=== PATIENT | male | born 1965 | race African-American/Black ===

== ENCOUNTER 2017-10-17 01:14 | Inpatient (IN) ==
[2017-10-17 05:50] LABS: BUN/Creatinine Ratio 38 (6-26); Blood Urea Nitrogen 55 mg/dL (6-20); Calcium 7.7 mg/dL (8.6-10.3); Carbon Dioxide 16 mEq/L (23-29); Chloride 100 mEq/L (98-107); Glucose 471 mg/dL (70-105); Osmolality,Calculated 302 (280-300); Potassium 5.1 mEq/L (3.5-5.1); Sodium 128 mEq/L (136-145); eGFR For African Americans > 60 (> 60); eGFR For Non-African Americans 51 (> 60)
[2017-10-17] MEDS ORDERED: Ondansetron 4 MG/2 ML VIAL IVP PRN (06:47)
[2017-10-17] MEDS ORDERED: *HR* Morphine 2 MG/ML SYRINGE IVP PRN (06:47)
[2017-10-17] MEDS ORDERED: Naloxone 0.4 MG/ML INJ IVP PRN (06:47)
[2017-10-17] MEDS ORDERED: *HR* OxyCODONE Immed Rel 5 MG TABLET PO PRN (06:47)
[2017-10-17] MEDS ORDERED: Acetaminophen 325 MG TABLET PO PRN (06:47)
[2017-10-17] MEDS ORDERED: *HR* Dextrose 50 % in Water (Syg) 50 ML SYRINGE IVP PRN ×2 (06:50→10:10)
[2017-10-17] MEDS ORDERED: Insulin Human Regular 100 UNIT in 0.9 % Sodium Chloride 100 ML IVC SCH ×2 (07:00→07:30)
--- NOTE | 2017-10-17 07:27 | Internal Med History&Physical ---
Date of Encounter: 10/17/17 Time of Encounter: 05:45 Assessment and Plan (1) DKA (diabetic ketoacidoses) Current visit: Yes Status: Acute Presented with nausea, vomiting and abdominal pain. Labs are significant for hyperglycemia and metabolic acidosis. DKA likely exacerbated by underlying infection and flu. Started on IV hydration and insulin drip per protocol. Continue every hourly Accu-Cheks, every 4 hourly BMP. Monitor and replete electrolytes as needed. Keep nothing by mouth for now. Check hemoglobin A1c. Monitor hemodynamic status and urine output closely. Qualifiers: Diabetes mellitus type: type 1 Diabetes mellitus complication detail: without coma Qualified Code(s): E10.10 - Type 1 diabetes mellitus with ketoacidosis without coma (2) DRAKE (acute kidney injury) Current visit: Yes Status: Acute Due to hyperglycemia and DKA. Continue IV hydration, monitor serum creatinine and urine output closely. (3) Tobacco abuse Current visit: Yes Status: Chronic Patient not motivated to quit smoking at this time. Declines nicotine transdermal patch. (4) Influenza A Current visit: Yes Status: Acute Reports flulike symptoms, rapid influenza antigen tested positive for influenza A. Start Tamiflu along with supportive care. IV hydration. Respiratory precautions. (5) Pneumonia Current visit: Yes Status: Acute Presented with sepsis criteria, more related to DKA. Chest x-ray reviewed independently, shows right basal infiltrate. Continue IV Rocephin and Zithromax. Follow-up blood cultures. Qualifiers: Pneumonia type: due to unspecified organism Laterality: right Lung location: lower lobe of lung Qualified Code(s): J18.1 - Lobar pneumonia, unspecified organism (6) Essential hypertension Current visit: Yes Status: Chronic Internal Medicine - H&P: HPI Chief complaint: Nausea, vomiting, abdominal pain Admitted From: Emergency Dept Plans for Post Hospital Care: Home History of present illness: Mr. Rodriguez is a 52 year old male with history of hypertension, diabetes and tobacco abuse, presents to the emergency room with complaints of three-day history of nausea, vomiting and abdominal pain. Patient reports feeling sick with subjective fevers, chills, myalgia associated with dry cough. He started to have significant nausea, vomiting and upper abdominal pain for The last 2 days. Vomiting was bilious and nonbloody, he was unable to keep anything down. No diarrhea, chest pain, dyspnea. He is unable to provide a detailed history , no family member at bedside. Past Med Surg Social Fam HX - Past Medical History Medical history: diabetes, hypertension Psychiatric history: no psych history - Past Surgical History Surgical History: no surgical history - Social History Smoking Status: Current every day smoker Packs per day: 3-4 packs per day Smokeless Tobacco Status: No Alcohol use: heavy Drug use: none Occupational status: unemployed Current living situation: Home, With Family Activity Level: Independent ambulation Recent Out of Country Travel Within the Last 8 Weeks: No Exposure or Possible Exposure to Illness During Travel: No - Family History Mother History Unknown: Yes Living Status: Age at : 55 Cause of : dm Hx Family Endocrine Disorder: Yes Internal Medicine - H&P: Meds Albuterol Sulfate [Albuterol Inhaler] 1 - 2 puff IH Q6H 08/29/16 [History] Aspirin [Lo-Dose Aspirin EC] 81 mg PO DAILY 08/29/16 [History] Beclomethasone Diprop 40mcg [QVAR 40 mcg] 1 - 2 puff IH BID 08/29/16 [History] Gabapentin 800 mg PO TID 08/29/16 [History] Glimepiride [Amaryl] 4 mg PO DAILY 08/29/16 [History] Insulin ASPART [Novolog Flexpen] 0 unit SQ AD 08/29/16 [History] Insulin Glargine,Hum.rec.anlog [Lantus Solostar] 0 unit SQ AD 08/29/16 [History] Lisinopril [Zestril] 10 mg PO DAILY 08/29/16 [History] Simvastatin [Zocor] 20 mg PO DAILY 08/29/16 [History] metFORMIN [Glucophage] 1,000 mg PO BID 08/29/16 [History] Loratadine [Claritin] 10 mg PO DAILY 14 Days tablet 09/20/16 [Rx] 3 Allergy/AdvReac Type Severity Reaction Status Date / Time Penicillins [PCN] Allergy Hives Verified 10/16/17 23:12 All Systems PM: A 10-system review of systems was performed and is negative for pertinent findings except as documented above in the HPI. - Constitutional Constitutional: anorexia, chills, fever(s), malaise, weakness - EENT Eyes: no change in vision, no discharge, no pain, no photophobia Ears: no ear discharge, no ear pain, no tinnitus Nose, mouth and throat: no dysphagia, no nasal discharge, no neck pain, no sore throat - Cardiovascular Cardiovascular ROS IM: no chest pain, no diaphoresis, no dyspnea, no lightheadedness, no palpitations, no syncope - Respiratory Respiratory: cough - Gastrointestinal Gastrointestinal: abdominal pain, nausea, vomiting - Musculoskeletal Musculoskeletal ROS IM: no numbness, no tingling - Integumentary Integumentary IM: no rash, no unusual bruising - Neurological Neurological ROS: no confusion, no convulsions, no focal weakness, no numbness, no tingling, no tremor(s) - Hematologic/Lymphatic Hematologic/Lymphatic: no easy bruising - Constitutional Vitals: Temp Pulse Resp BP Pulse Ox 97.7 F 92 16 103/69 97 10/17/17 07:14 10/17/17 07:14 10/17/17 07:14 10/17/17 07:14 10/17/17 07:14 General appearance: Present: cachectic, disheveled, A&O X 3, answers questions appropriately - Respiratory Respiratory exam: Present: decreased breath sounds, rales (Right basal crackles) . Absent: accessory muscle use, rhonchi, wheezes - Cardiovascular Cardiovascular exam: Present: RRR, +S1, +S2, tachycardia. Absent: diastolic murmur, gallop, rubs, systolic murmur - GI/Abdominal GI/Abdominal exam: Present: normal bowel sounds, soft, no peritoneal signs. Absent: distended, tenderness - Extremities Exam Extremities exam: Present: full ROM, warm, radial pulses palpable and symmetrical. Absent: calf tenderness, cyanotic, pedal edema - Neurological Exam Neurological exam: Present: CN II-XII intact, oriented X3, no focal deficits. Absent: pronater drift, facial droop, speech deficit - Skin Skin exam: Present: dry, intact Internal Med - H&P Results - Labs CBC & Chem 7: 10/17/17 05:21 Labs: BMP 10/17/17 05:21 Sodium 128 L Potassium 5.1 Chloride 100 Carbon Dioxide 16 L BUN 55 H Creatinine 1.45 H Glucose 471 H Calcium 7.7 L
[2017-10-17] MEDS ORDERED: D5% in 0.45% NACL w KCl 20 MEQ/1,000 ML MLS IVC PRN (07:29)
[2017-10-17] MEDS ORDERED: Insulin Regular, Human 100 UNIT/ML IV PRN (07:29)
[2017-10-17] MEDS: Insulin Human Regular 100 UNIT in 0.9 % Sodium Chloride 100 ML IVC SCH ×2 (07:35→09:40)
[2017-10-17] MEDS: *HR* Heparin 5,000 UNIT/ML VIAL SQ SCH ×2 (07:37→16:54)
[2017-10-17] MEDS: Aspirin Enteric Coated 81 MG Tablet PO SCH (07:37)
[2017-10-17] MEDS: 0.9 % Sodium Chloride 1,000 ML IVC SCH ×2 (07:40→16:01)
[2017-10-17 10:01] LABS: BUN/Creatinine Ratio 41 (6-26); Blood Urea Nitrogen 55 mg/dL (6-20); Calcium 7.8 mg/dL (8.6-10.3); Carbon Dioxide 22 mEq/L (23-29); Chloride 105 mEq/L (98-107); Glucose 271 mg/dL (70-105); Magnesium 2.2 mg/dL (1.6-2.6); Osmolality,Calculated 301 (280-300); Phosphorous 1.3 mg/dL (2.7-4.5); Potassium 4.1 mEq/L (3.5-5.1); Sodium 133 mEq/L (136-145); eGFR For African Americans > 60 (> 60); eGFR For Non-African Americans 56 (> 60)
[2017-10-17] MEDS ORDERED: Dextrose Gel 15 GM/37.5 ML TUBE PO PRN ×2 (10:10)
[2017-10-17] MEDS ORDERED: D5% in Water 1,000 ML IVC PRN (10:10)
[2017-10-17] MEDS ORDERED: Insulin DETEMIR 100 UNIT/ML X5UNITS SQ STA (10:10)
[2017-10-17 10:44] LABS: Hemoglobin A1C 12.4 %
[2017-10-17] MEDS ORDERED: D5% in 0.45% NACL w KCl 20 MEQ/1,000 ML MLS IVC ONE (10:48)
[2017-10-17] MEDS ORDERED: D5% in 0.45% NACL w KCl 20 MEQ/1,000 ML MLS IVC SCH (11:00)
[2017-10-17] MEDS ORDERED: Insulin LISPRO 300 UNITS/3 ML VIAL SQ SCH ×2 (12:00→21:00)
--- NOTE | 2017-10-17 12:03 | Internal Med Progress Note ---
<Sonia William - Last Filed: 10/17/17 12:01> Date of Encounter: 10/17/17 Time of Encounter: 12:01 - Assessment and plan (1) DKA (diabetic ketoacidoses) Current Visit: Yes Status: Acute Assessment and plan: An iron gap has normalized Start diabetic diet We will discontinue IV fluids later today Continue to check electrolytes and replete as needed Accu-Cheks and sliding scale Start 10 units of Levemir daily Qualifiers: Diabetes mellitus type: type 1 Diabetes mellitus complication detail: without coma Qualified Code(s): E10.10 - Type 1 diabetes mellitus with ketoacidosis without coma (2) Pneumonia Current Visit: Yes Status: Acute Assessment and plan: Chest x-ray shows mild right infrahilar opacity Rocephin and azithromycin Blood cultures pending Qualifiers: Pneumonia type: due to unspecified organism Laterality: right Lung location: lower lobe of lung Qualified Code(s): J18.1 - Lobar pneumonia, unspecified organism (3) Influenza A Current Visit: Yes Status: Acute Assessment and plan: Tamiflu (4) DRAKE (acute kidney injury) Current Visit: Yes Status: Acute Assessment and plan: Due to DKA On IV fluids; diabetic diet has been started plan to discontinue fluids this evening Continue to monitor (5) Essential hypertension Current Visit: Yes Status: Chronic Assessment and plan: Chronic, stable Continue medications (6) Diabetes Current Visit: No Status: Acute Assessment and plan: A1c 12.4 Diabetic diet Levemir 10 units daily, adjust as needed Accu-Cheks Low-dose sliding scale Patient states that his meter at home was not working. Home medications unknown. Patient does not know how to read or write. Qualifiers: Diabetes mellitus type: type 1 Diabetes mellitus complication status: with ketoacidosis Diabetes mellitus complication detail: without coma Qualified Code(s): E10.10 - Type 1 diabetes mellitus with ketoacidosis without coma - Subjective Interval history: Patient seen and examined. Relates a several day history of being sick prior to coming to the hospital. - Constitutional Vitals: Temp Pulse Resp BP Pulse Ox 98.1 F 89 16 106/70 97 10/17/17 11:38 10/17/17 11:38 10/17/17 11:38 10/17/17 11:38 10/17/17 11:38 General appearance: Present: cachectic, disheveled, A&O X 3, answers questions appropriately - Head Head exam: Present: atraumatic, normocephalic - Eye Eye exam: Present: PERRL, conjuntiva pink, sclera anicteric Pupils: Present: PERRL - Neck Neck exam general surgery: Present: supple, trachea midline - Respiratory Respiratory exam: Present: CTAB. Absent: accessory muscle use, rales, rhonchi, wheezes - Cardiovascular Cardiovascular exam: Present: RRR, +S1, +S2. Absent: diastolic murmur, gallop, rubs, systolic murmur - GI/Abdominal GI/Abdominal exam: Present: normal bowel sounds, soft, no peritoneal signs. Absent: distended, tenderness - Extremities Exam Extremities exam: Present: warm. Absent: pedal edema, tenderness Additional comments: Posterior tibial pulses palpable and symmetric - Neurological Exam Neurological exam: Present: CN II-XII intact, oriented X3, no focal deficits. Absent: pronater drift, facial droop, speech deficit - Skin Skin exam: Present: dry, intact Internal Medicine: Result - Labs CBC & Chem 7: 10/17/17 09:26 Labs: [facility] 10/17/17 10/17/17 05:21 09:26 Sodium 128 L 133 L Potassium 5.1 4.1 Chloride 100 105 Carbon Dioxide 16 L 22 L BUN 55 H 55 H Creatinine 1.45 H 1.34 H Glucose 471 H 271 H Calcium 7.7 L 7.8 L Consult Discharge Plan - Plan Referrals: Aretha Wren MD [Primary Care Provider] - <Wagner Weeks - Last Filed: 10/17/17 18:54> Date of Encounter: 10/17/17 - Constitutional Vitals: Temp Pulse Resp BP Pulse Ox 98.0 F 84 15 111/75 99 10/17/17 16:01 10/17/17 16:02 10/17/17 16:01 10/17/17 16:01 10/17/17 16:01 Internal Medicine: Result - Labs CBC & Chem 7: 10/17/17 09:26 Labs: [facility] 10/17/17 10/17/17 05:21 09:26 Sodium 128 L 133 L Potassium 5.1 4.1 Chloride 100 105 Carbon Dioxide 16 L 22 L BUN 55 H 55 H Creatinine 1.45 H 1.34 H Glucose 471 H 271 H Calcium 7.7 L 7.8 L Urine 10/17/17 Range/Units 13:50 Urine Color Yellow (Yellow) Urine Clarity Clear (Clear) Urine pH 6.0 (5.0-8.0) pH Units Ur Specific [place] 1.025 (1.010-1.025) Urine Protein 30 H (Neg-Trace) mg/dL Urine Glucose (UA) >=1000 H (Normal) mg/dL - Attending Attestation I examined this patient and my medical decision-making was reviewed with the Resident Physician on 10/17/17. I agree with the documented findings, disposition and treatment plan as described except to the extent set forth below. Mr Rodriguez was admitted earlier today with acute DKA and influenza. He is now off insulin drip and eating. No fever at this time. Exam Alert. Comfortable Continue current plan as above.
[2017-10-17] MEDS: Insulin LISPRO 300 UNITS/3 ML VIAL SQ SCH ×2 (12:16→16:52)
[2017-10-17] MEDS: Oseltamivir Phosphate 30 MG CAPSULE PO SCH ×2 (12:37→20:58)
[2017-10-17 14:11] LABS: Bilirubin,Urine Negative (Negative); Blood,Urine Negative (Negative); Clarity,Urine Clear (Clear); Color,Urine Yellow (Yellow); Glucose,Urine (UA) >=1000 mg/dL (Normal); Ketones,Urine 15 mg/dL (Negative); Leukocyte Esterase,Urine Negative (Negative); Nitrite,Urine Negative (Negative); Protein,Urine 30 mg/dL (Neg-Trace); Specific Gravity,Urine 1.025 (1.010-1.025); Urobilinogen,Urine Normal (Normal)
[2017-10-17 14:25] LABS: Bacteria,Urine Few per hpf (None-Few)
[2017-10-17] MEDS ORDERED: Insulin DETEMIR 100 UNIT/ML X5UNITS SQ SCH (21:00)
[2017-10-18] MEDS: *HR* Heparin 5,000 UNIT/ML VIAL SQ SCH ×2 (00:38→07:34)
[2017-10-18] MEDS ORDERED: Azithromycin 500 MG in D5% in Water 250 ML IVPB SCH (01:30)
[2017-10-18] MEDS ORDERED: cefTRIAXone 1,000 MG in Water for inj. (sterile) 20 ML 10 ML IVPB SCH (04:30)
[2017-10-18] MEDS: Insulin LISPRO 300 UNITS/3 ML VIAL SQ SCH (07:34)
[2017-10-18] MEDS: Aspirin Enteric Coated 81 MG Tablet PO SCH (07:34)
[2017-10-18] MEDS: Oseltamivir Phosphate 30 MG CAPSULE PO SCH (07:34)
[2017-10-18 07:36] VITALS: BP 124/78
[2017-10-18 09:49] LABS: Basophils % 0.1 %; Eosinophils % 0.2 %; Hematocrit 34.8 % (37.5-50.1); Hemoglobin 11.9 g/dL (12.9-16.9); Immature Granulocytes % 0.4 % (0-4); Lymphocytes # 2.5 K/mcL (0.6-4.6); Lymphocytes % 15.7 %; Mean Corpuscular HGB Conc 34.2 g/dL (31.6-35.5); Mean Corpuscular Hemoglobin 28.4 pg (28.0-33.3); Mean Corpuscular Volume 83.1 fL (83.0-100.0); Mean Platelet Volume 11.5 fL (9.4-12.4); Monocytes # 1.3 K/mcL (0.0-1.3); Monocytes % 8.3 %; Neutrophils # 11.8 K/mcL (1.6-8.9); Platelet Count 220 K/mcL (140-400); Red Blood Count 4.19 M/mcL (4.19-5.50); Red Cell Distribution Width 15.3 % (11.5-14.5); Segmented Neutrophils % 75.3 %
[2017-10-18 09:52] LABS: BUN/Creatinine Ratio 29 (6-26); Blood Urea Nitrogen 21 mg/dL (6-20); Calcium 7.8 mg/dL (8.6-10.3); Carbon Dioxide 24 mEq/L (23-29); Chloride 108 mEq/L (98-107); Glucose 217 mg/dL (70-105); Magnesium 2.2 mg/dL (1.6-2.6); Osmolality,Calculated 292 (280-300); Potassium 4.1 mEq/L (3.5-5.1); Sodium 136 mEq/L (136-145); eGFR For African Americans > 60 (> 60); eGFR For Non-African Americans > 60 (> 60)
--- NOTE | 2017-10-18 09:56 | Discharge Summary ---
<MiladsorayajerseySonia sparrow - Last Filed: 10/18/17 09:51> Date of Encounter: 10/18/17 Time of Encounter: 09:52 - Discharge Diagnosis (1) DKA (diabetic ketoacidoses) Priority: Primary Status: Acute Qualifiers: Diabetes mellitus type: type 1 Diabetes mellitus complication detail: without coma Qualified Code(s): E10.10 - Type 1 diabetes mellitus with ketoacidosis without coma (2) Pneumonia Priority: Secondary Status: Inactive Qualifiers: Pneumonia type: due to unspecified organism Laterality: right Lung location: lower lobe of lung Qualified Code(s): J18.1 - Lobar pneumonia, unspecified organism (3) Influenza A Priority: Secondary Status: Inactive (4) DRAKE (acute kidney injury) Priority: Secondary Status: Acute (5) Essential hypertension Priority: Secondary Status: Chronic (6) Diabetes Priority: Secondary Status: Acute Qualifiers: Diabetes mellitus type: type 1 Diabetes mellitus complication status: with ketoacidosis Diabetes mellitus complication detail: without coma Qualified Code(s): E10.10 - Type 1 diabetes mellitus with ketoacidosis without coma - Discharge Medications Prescriptions: Azithromycin [Zithromax] 250 mg PO Q24H #4 tablet Oseltamivir Phosphate 75 mg PO BID #7 capsule Home Medications: Albuterol Sulfate [Albuterol Inhaler] 1 - 2 puff IH Q6H 08/29/16 [History] Aspirin [Lo-Dose Aspirin EC] 81 mg PO DAILY 08/29/16 [History] Beclomethasone Diprop 40mcg [QVAR 40 mcg] 1 - 2 puff IH BID 08/29/16 [History] Gabapentin 800 mg PO TID 08/29/16 [History] Insulin ASPART [Novolog Flexpen] 2 - 10 unit SQ TIDWM 08/29/16 [History] Insulin Glargine,Hum.rec.anlog [Lantus Solostar] 50 unit SQ QAM 08/29/16 [ History] Lisinopril [Zestril] 10 mg PO DAILY 08/29/16 [History] Simvastatin [Zocor] 20 mg PO DAILY 08/29/16 [History] Loratadine [Claritin] 10 mg PO DAILY 14 Days tablet 09/20/16 [Rx] Azithromycin [Zithromax] 250 mg PO Q24H #4 tablet 10/18/17 [Rx] Oseltamivir Phosphate 75 mg PO BID #7 capsule 10/18/17 [Rx] Allergies/Adverse Reactions: 3 Allergy/AdvReac Type Severity Reaction Status Date / Time Penicillins [PCN] Allergy Hives Verified 10/16/17 23:12 Date of admission: 10/17/17 05:43 Primary care physician: Aretha Wren Consults: 10/17/17 06:00 Consult to Nutrition [CONS] Routine Comment: Consulting Provider: NUTRITION Reason for Dietary Consult: MST Score Other Discharging clinician: Sonia William Anticipated date of discharge: 10/18/17 - Patient Status Disposition: Home, Self-Care Condition: Good Functional capacity at discharge: independent ambulation Overall status at discharge: patient is back to baseline - Discharge Instructions Instructions: Azithromycin (By mouth), Oseltamivir (By mouth) Follow Up With: Aretha Wren MD [Primary Care Provider] - (sent web request on 10-18-17 @ [phone]) Additional Instructions: Follow-up appointments: If there is not an appointment listed below, please call your physician and schedule a follow-up appointment. If you have congestive heart failure and your symptoms return, make an appointment with your physician. Medication List: Carry an up to date list of medications you are taking at all time. We have given you an updated medication list including any new medications that you have been prescribed. Please provide that list to your primary provider - Diet and Activity Diet: diabetic diet Interval History: Patient states that he is feeling better today. He states that his breathing is doing well. He is asking to be discharged. He states that he takes 32 units of insulin at night. His primary care physician asked him to take 10 units of insulin in the morning; however, this made his sugar too low. He states that he is supposed to take insulin with his meals; however, he is confused about how to use the sliding scale. The patient does not know how to read or write. Hospital course: Mr. Rodriguez is a 52 year old male admitted for diabetic ketoacidosis, pneumonia, and tested positive for influenza A. He had a three-day history of nausea, vomiting, and abdominal pain on admission. He also had subjective fevers, chills, myalgia, and a dry cough. He was initially treated with DKA protocol with insulin drip. His initial blood sugar was 705. His blood sugar normalized and he was started on long-acting insulin along with sliding scale. He was treated with Rocephin and azithromycin for pneumonia and Tamiflu for influenza A. he is being discharged home on his home dose of insulin, azithromycin for pneumonia, and Tamiflu for influenza A. - Time Spent with Patient Total time spent providing and/or coordinating discharge services: - Constitutional Vitals: Temp Pulse Resp BP Pulse Ox 98 F 76 18 124/78 96 10/18/17 07:32 10/18/17 07:41 10/18/17 07:32 10/18/17 07:32 10/18/17 07:32 General appearance: Present: cachectic, disheveled, A&O X 3, answers questions appropriately <Wagner Weeks - Last Filed: 10/18/17 13:56> Date of Encounter: 10/18/17 - Discharge Diagnosis (1) DKA (diabetic ketoacidoses) Status: Resolved Qualifiers: Diabetes mellitus type: type 1 Diabetes mellitus complication detail: without coma Qualified Code(s): E10.10 - Type 1 diabetes mellitus with ketoacidosis without coma (2) Metabolic encephalopathy Priority: Secondary Status: Resolved (3) Essential hypertension Status: Chronic (4) Tobacco abuse Priority: Secondary Status: Chronic (5) Diabetes Status: Chronic Qualifiers: Diabetes mellitus type: type 1 Diabetes mellitus complication status: with hyperglycemia Qualified Code(s): E10.65 - Type 1 diabetes mellitus with hyperglycemia (6) Alcohol abuse Priority: Secondary Status: Chronic (7) Illiterate Priority: Secondary Status: Chronic Date of admission: 10/17/17 05:43 Primary care physician: Aretha Wren Consults: 10/17/17 06:00 Consult to Nutrition [CONS] Routine Comment: Consulting Provider: NUTRITION Reason for Dietary Consult: MST Score Other Hospital course: Mr. Rodriguez is a 52 year old male - Time Spent with Patient Total time spent providing and/or coordinating discharge services: 38min - Constitutional Vitals: Temp Pulse Resp BP Pulse Ox 98 F 76 18 124/78 96 10/18/17 07:32 10/18/17 07:41 10/18/17 07:32 10/18/17 07:32 10/18/17 07:32 - Attending Attestation I examined this patient and my medical decision-making was reviewed with the Resident Physician on 10/18/17. I agree with the documented findings, disposition and treatment plan as described except to the extent set forth below. Mr Rodriguez has been admitted for acute DKA associated with pneumonia and acute influenza A. His sugar has corrected and he is tolerating home insulin dose. He needs new accucheck machine. He is now afebrile with stable vitals and ready for discharge home. Exam Alert. Comfortable Mucus membranes dry Heart reg No wheeze Abd soft Plan D/C home Follow up with PCP Scripts for accucheck machine and insulin Complete azithromycin and Tamiflu
[2017-10-18] MEDS ORDERED: Insulin DETEMIR 100 UNIT/ML X5UNITS SQ SCH (21:00)
== END 2017-10-18 11:57 | disposition home or self-care (01) | DRG 723 ==
LOC: 2NNU
PROVIDERS: ADMIT Internal Medicine; ATTEND Internal Medicine

== ENCOUNTER 2018-03-20 12:17 | Inpatient (IN) ==
--- NOTE | 2018-03-20 12:22 | Emergency Department Note ---
Disposition Clinical Impression: Altered mental state, Hypoglycemia Disposition: Admitted As Inpatient Condition: Fair General Adult HPI - General Chief complaint: ED General Medical Stated complaint: Hypoglycemia Time Seen by Provider: 03/20/18 12:19 - Related Data Home Medications Medication Instructions Recorded Confirmed Aspirin [Lo-Dose Aspirin EC] 81 mg PO DAILY 03/20/18 Gabapentin [Neurontin] 600 mg PO Q8H 03/20/18 03/20/18 Glimepiride [Amaryl] 4 mg PO DAILY 03/20/18 03/20/18 Insulin Glargine,Hum.rec.anlog 50 unit SQ HS 03/20/18 03/20/18 [Basaglar Kwikpen U-100] Metformin HCl [Glucophage] 1,000 mg PO BID 03/20/18 03/20/18 Montelukast [Singulair] 10 mg PO HS 03/20/18 03/20/18 Simvastatin [Zocor] 20 mg PO HS 03/20/18 03/20/18 Allergies Allergy/AdvReac Type Severity Reaction Status Date / Time Penicillins [PCN] Allergy Hives Verified 03/20/18 14:04 Course Vital Signs Temperature 97 F L 03/20/18 12:19 Pulse Rate 121 03/20/18 12:19 Respiratory Rate 20 03/20/18 12:19 Blood Pressure 127/101 03/20/18 12:19 O2 Sat by Pulse Oximetry 82 03/20/18 12:19 Temperature 99.5 F 03/20/18 18:52 Pulse Rate 101 03/20/18 18:52 Respiratory Rate 14 03/20/18 18:52 Blood Pressure 165/91 03/20/18 18:52 O2 Sat by Pulse Oximetry 99 03/20/18 18:52 Oxygen Delivery Oxygen Delivery Nasal Cannula Medical Decision Making - Lab Data Result diagrams: 03/20/18 13:06 03/20/18 12:19 Lab Results 03/20/18 03/20/18 03/20/18 Range/Units 12:19 12:19 12:23 WBC (4.3-11.1) K/mcL RBC (4.19-5.50) M/mcL Hgb (12.9-16.9) g/dL Hct (37.5-50.1) % MCV (83.0-100.0) fL MCH (28.0-33.3) pg MCHC (31.6-35.5) g/dL RDW (11.5-14.5) % Plt Count (140-400) K/mcL MPV (9.4-12.4) fL Immature Gran % (0-4) % Seg Neutrophils % % Lymphocytes % % Monocytes % % Eosinophils % % Basophils % % Neutrophils # (1.6-8.9) K/mcL Lymphocytes # (0.6-4.6) K/mcL Monocytes # (0.0-1.3) K/mcL Eosinophils # (0.0-0.6) K/mcL Basophils # (0.0-0.2) K/mcL PT 10.1 (9.4-12.1) Seconds INR 0.9 VBG pH (7.32-7.42) pH Units VBG pCO2 (41-51) mmHg VBG pO2 (25-50) mmHg VBG HCO3 (21-27) mEq/L Sodium 138 (136-145) mEq/L Potassium 4.0 (3.5-5.1) mEq/L Chloride 107 (98-107) mEq/L Carbon Dioxide 26 (23-29) mEq/L BUN 9 (6-20) mg/dL Creatinine 0.75 (0.70-1.30) mg/dL Est GFR ( Amer) > 60 (> 60) Est GFR (Non-Af Amer) > 60 (> 60) BUN/Creatinine Ratio 12 (6-26) Glucose 320 H (70-105) mg/dL Est Mean Plasma Glucose mg/dl Hemoglobin A1c ( - 5.6) % Calculated Osmolality 297 (280-300) Lactic Acid (0.5-2.2) mmol/L Calcium 8.7 (8.6-10.3) mg/dL Magnesium 1.8 (1.6-2.6) mg/dL Total Bilirubin 0.3 (0.3-1.0) mg/dL AST 20 (13-39) Units/L ALT 9 (7-52) Units/L Alkaline Phosphatase 61 (34-104) Units/L Troponin I < 0.03 (< 0.04) ng/mL Serum Total Protein 6.9 (6.4-8.9) g/dL Albumin 3.5 (3.5-5.7) g/dL Globulin 3.4 (2.4-3.5) g/dL Albumin/Globulin Ratio 1.0 L (1.1-2.2) Lipase 13 (11-82) Units/L Urine Color (Yellow) Urine Clarity (Clear) Urine pH (5.0-8.0) pH Units Ur Specific [place] (1.010-1.025) Urine Protein (Neg-Trace) mg/dL Urine Glucose (UA) (Normal) mg/dL Urine Ketones (Negative) mg/dL Urine Blood (Negative) Urine Nitrite (Negative) Urine Bilirubin (Negative) Urine Urobilinogen (Normal) mg/dL Ur Leukocyte Esterase (Negative) Urine Microscopic RBC (0-3) per hpf Urine Microscopic WBC (0-3) per hpf Ur Squamous Epith Cells (None-Few) per lpf Urine Bacteria (None-Few) per hpf Hyaline Casts (None-Few) per lpf Ur Culture Indicated? (NO) Urine Opiates Screen (Wbebyj=308) ng/mL Ur Barbiturates Screen (Nrfdel=436) ng/mL Ur Phencyclidine Scrn (Cutoff=25) ng/mL Ur Amphetamines Screen (Ukzsdl=4170) ng/mL U Benzodiazepines Scrn (Ymxlic=963) ng/mL Urine Cocaine Screen (Cutoff= 300) ng/mL U Marijuana (THC) Screen (Cutoff = 50) ng/mL Ethyl Alcohol < 10 (Less than 10) mg/dL 03/20/18 03/20/18 03/20/18 Range/Units 13:06 13:06 13:06 WBC 15.6 H (4.3-11.1) K/mcL RBC 4.80 (4.19-5.50) M/mcL Hgb 13.5 (12.9-16.9) g/dL Hct 41.1 (37.5-50.1) % MCV 85.6 (83.0-100.0) fL MCH 28.1 (28.0-33.3) pg MCHC 32.8 (31.6-35.5) g/dL RDW 14.1 (11.5-14.5) % Plt Count 386 (140-400) K/mcL MPV 10.4 (9.4-12.4) fL Immature Gran % 0.6 (0-4) % Seg Neutrophils % 81.3 % Lymphocytes % 7.9 % Monocytes % 8.8 % Eosinophils % 1.0 % Basophils % 0.4 % Neutrophils # 12.7 H (1.6-8.9) K/mcL Lymphocytes # 1.2 (0.6-4.6) K/mcL Monocytes # 1.4 H (0.0-1.3) K/mcL Eosinophils # 0.2 (0.0-0.6) K/mcL Basophils # 0.1 (0.0-0.2) K/mcL PT (9.4-12.1) Seconds INR VBG pH (7.32-7.42) pH Units VBG pCO2 (41-51) mmHg VBG pO2 (25-50) mmHg VBG HCO3 (21-27) mEq/L Sodium (136-145) mEq/L Potassium (3.5-5.1) mEq/L Chloride (98-107) mEq/L Carbon Dioxide (23-29) mEq/L BUN (6-20) mg/dL Creatinine (0.70-1.30) mg/dL Est GFR ( Amer) (> 60) Est GFR (Non-Af Amer) (> 60) BUN/Creatinine Ratio (6-26) Glucose (70-105) mg/dL Est Mean Plasma Glucose 252 mg/dl Hemoglobin A1c 10.4 H ( - 5.6) % Calculated Osmolality (280-300) Lactic Acid 0.8 (0.5-2.2) mmol/L Calcium (8.6-10.3) mg/dL Magnesium (1.6-2.6) mg/dL Total Bilirubin (0.3-1.0) mg/dL AST (13-39) Units/L ALT (7-52) Units/L Alkaline Phosphatase (34-104) Units/L Troponin I (< 0.04) ng/mL Serum Total Protein (6.4-8.9) g/dL Albumin (3.5-5.7) g/dL Globulin (2.4-3.5) g/dL Albumin/Globulin Ratio (1.1-2.2) Lipase (11-82) Units/L Urine Color (Yellow) Urine Clarity (Clear) Urine pH (5.0-8.0) pH Units Ur Specific [place] (1.010-1.025) Urine Protein (Neg-Trace) mg/dL Urine Glucose (UA) (Normal) mg/dL Urine Ketones (Negative) mg/dL Urine Blood (Negative) Urine Nitrite (Negative) Urine Bilirubin (Negative) Urine Urobilinogen (Normal) mg/dL Ur Leukocyte Esterase (Negative) Urine Microscopic RBC (0-3) per hpf Urine Microscopic WBC (0-3) per hpf Ur Squamous Epith Cells (None-Few) per lpf Urine Bacteria (None-Few) per hpf Hyaline Casts (None-Few) per lpf Ur Culture Indicated? (NO) Urine Opiates Screen (Gywork=768) ng/mL Ur Barbiturates Screen (Vmnjnk=611) ng/mL Ur Phencyclidine Scrn (Cutoff=25) ng/mL Ur Amphetamines Screen (Dhwthy=6521) ng/mL U Benzodiazepines Scrn (Pbthrn=054) ng/mL Urine Cocaine Screen (Cutoff= 300) ng/mL U Marijuana (THC) Screen (Cutoff = 50) ng/mL Ethyl Alcohol (Less than 10) mg/dL 03/20/18 03/20/18 03/20/18 Range/Units 13:19 13:30 13:30 WBC (4.3-11.1) K/mcL RBC (4.19-5.50) M/mcL Hgb (12.9-16.9) g/dL Hct (37.5-50.1) % MCV (83.0-100.0) fL MCH (28.0-33.3) pg MCHC (31.6-35.5) g/dL RDW (11.5-14.5) % Plt Count (140-400) K/mcL MPV (9.4-12.4) fL Immature Gran % (0-4) % Seg Neutrophils % % Lymphocytes % % Monocytes % % Eosinophils % % Basophils % % Neutrophils # (1.6-8.9) K/mcL Lymphocytes # (0.6-4.6) K/mcL Monocytes # (0.0-1.3) K/mcL Eosinophils # (0.0-0.6) K/mcL Basophils # (0.0-0.2) K/mcL PT (9.4-12.1) Seconds INR VBG pH 7.39 (7.32-7.42) pH Units VBG pCO2 47 (41-51) mmHg VBG pO2 116 H (25-50) mmHg VBG HCO3 28 H (21-27) mEq/L Sodium (136-145) mEq/L Potassium (3.5-5.1) mEq/L Chloride (98-107) mEq/L Carbon Dioxide (23-29) mEq/L BUN (6-20) mg/dL Creatinine (0.70-1.30) mg/dL Est GFR ( Amer) (> 60) Est GFR (Non-Af Amer) (> 60) BUN/Creatinine Ratio (6-26) Glucose (70-105) mg/dL Est Mean Plasma Glucose mg/dl Hemoglobin A1c ( - 5.6) % Calculated Osmolality (280-300) Lactic Acid (0.5-2.2) mmol/L Calcium (8.6-10.3) mg/dL Magnesium (1.6-2.6) mg/dL Total Bilirubin (0.3-1.0) mg/dL AST (13-39) Units/L ALT (7-52) Units/L Alkaline Phosphatase (34-104) Units/L Troponin I (< 0.04) ng/mL Serum Total Protein (6.4-8.9) g/dL Albumin (3.5-5.7) g/dL Globulin (2.4-3.5) g/dL Albumin/Globulin Ratio (1.1-2.2) Lipase (11-82) Units/L Urine Color Yellow (Yellow) Urine Clarity Clear (Clear) Urine pH 6.0 (5.0-8.0) pH Units Ur Specific [place] 1.016 (1.010-1.025) Urine Protein 100 H (Neg-Trace) mg/dL Urine Glucose (UA) 250 H (Normal) mg/dL Urine Ketones Negative (Negative) mg/dL Urine Blood Negative (Negative) Urine Nitrite Negative (Negative) Urine Bilirubin Negative (Negative) Urine Urobilinogen Normal (Normal) mg/dL Ur Leukocyte Esterase Negative (Negative) Urine Microscopic RBC 0-3 (0-3) per hpf Urine Microscopic WBC 0-3 (0-3) per hpf Ur Squamous Epith Cells Few (None-Few) per lpf Urine Bacteria Moderate H (None-Few) per hpf Hyaline Casts None Seen (None-Few) per lpf Ur Culture Indicated? NO (NO) Urine Opiates Screen Negative (Vhkbqq=628) ng/mL Ur Barbiturates Screen Negative (Yvosnl=278) ng/mL Ur Phencyclidine Scrn Negative (Cutoff=25) ng/mL Ur Amphetamines Screen Negative (Pfypvd=1787) ng/mL U Benzodiazepines Scrn Negative (Hjpwxf=564) ng/mL Urine Cocaine Screen Negative (Cutoff= 300) ng/mL U Marijuana (THC) Screen Negative (Cutoff = 50) ng/mL Ethyl Alcohol (Less than 10) mg/dL Critical Care Time Critical Care Time: Yes Total Critical Care Time: 30 Attestation: The high probability of a clinically significant, sudden or life threatening deterioration of the [] system(s) required my full and direct attention, intervention and personal management. The aggregate critical care time was [] minutes. This time is in addition to time spent performing reported procedures but includes the following: [] Data Review and interpretation [] Patient assessment and monitoring of vital signs [] Documentation [] Medication orders and management Attestation Statement - Attestation Attestation: I examined this patient and my medical decision-making was reviewed with the Resident Physician. I agree with the documented findings, disposition and treatment plan as described except to the extent set forth below. [id number] time provided Patient arrives by EMS with altered mentation and possible hypoglycemia. The patient was found on the porch with bystanders present. Bystanders had given the patient sweet tea by mouth prior to arrival. Upon arrival to our medical treatment area the patient is alert but is not answering questions appropriately. He looks disheveled. He does not really follow commands with desired intent and purpose. His name and medical history is initially unknown. No family is present. Stroke alert not initially activated because we do not know the onset of patient's symptoms. He will be closely observed 12:42: Family now available at bedside 13:52: Patient is now alert, lucid. He follows commands. He is verbal. He appears to be approaching back to baseline. We will request admission to the medicine service due to the fact that the patient takes a sulfonylurea (amaryl) as well as insulin and metformin
[2018-03-20] MEDS ORDERED: *HR* Dextrose 50 % in Water (Syg) 50 ML SYRINGE IVP ONE (12:24)
[2018-03-20 13:00] LABS: INR 0.9; Prothrombin Time 10.1 Seconds (9.4-12.1)
[2018-03-20 13:10] LABS: Alanine Aminotransferase 9 Units/L (7-52); Albumin 3.5 g/dL (3.5-5.7); Alkaline Phosphatase 61 Units/L (34-104); Aspartate Amino Transferase 20 Units/L (13-39); BUN/Creatinine Ratio 12 (6-26); Bilirubin,Total 0.3 mg/dL (0.3-1.0); Blood Urea Nitrogen 9 mg/dL (6-20); Calcium 8.7 mg/dL (8.6-10.3); Carbon Dioxide 26 mEq/L (23-29); Chloride 107 mEq/L (98-107); Globulin 3.4 g/dL (2.4-3.5); Glucose 320 mg/dL (70-105); Lipase 13 Units/L (11-82); Magnesium 1.8 mg/dL (1.6-2.6); Osmolality,Calculated 297 (280-300); Sodium 138 mEq/L (136-145); Total Protein 6.9 g/dL (6.4-8.9); Troponin I < 0.03 ng/mL (< 0.04); eGFR For African Americans > 60 (> 60); eGFR For Non-African Americans > 60 (> 60)
[2018-03-20 13:12] LABS: Basophils # 0.1 K/mcL (0.0-0.2); Basophils % 0.4 %; Eosinophils # 0.2 K/mcL (0.0-0.6); Hematocrit 41.1 % (37.5-50.1); Hemoglobin 13.5 g/dL (12.9-16.9); Immature Granulocytes % 0.6 % (0-4); Lymphocytes # 1.2 K/mcL (0.6-4.6); Lymphocytes % 7.9 %; Mean Corpuscular HGB Conc 32.8 g/dL (31.6-35.5); Mean Corpuscular Hemoglobin 28.1 pg (28.0-33.3); Mean Corpuscular Volume 85.6 fL (83.0-100.0); Mean Platelet Volume 10.4 fL (9.4-12.4); Monocytes # 1.4 K/mcL (0.0-1.3); Monocytes % 8.8 %; Neutrophils # 12.7 K/mcL (1.6-8.9); Platelet Count 386 K/mcL (140-400); Red Cell Distribution Width 14.1 % (11.5-14.5); Segmented Neutrophils % 81.3 %
[2018-03-20 13:23] LABS: VBG HCO3 28 mEq/L (21-27); VBG PCO2 47 mmHg (41-51); VBG PH 7.39 pH Units (7.32-7.42); VBG PO2 116 mmHg (25-50)
[2018-03-20 13:41] LABS: Bilirubin,Urine Negative (Negative); Blood,Urine Negative (Negative); Clarity,Urine Clear (Clear); Color,Urine Yellow (Yellow); Glucose,Urine (UA) 250 mg/dL (Normal); Ketones,Urine Negative (Negative); Leukocyte Esterase,Urine Negative (Negative); Nitrite,Urine Negative (Negative); Protein,Urine 100 mg/dL (Neg-Trace); Specific Gravity,Urine 1.016 (1.010-1.025); Urobilinogen,Urine Normal (Normal)
[2018-03-20 13:43] LABS: Bacteria,Urine Moderate per hpf (None-Few); Hyaline Casts,Urine None Seen per lpf (None-Few); RBC,Urine 0-3 per hpf (0-3); Squamous Epithelial Cell,Urine Few per lpf (None-Few); WBC,Urine 0-3 per hpf (0-3)
[2018-03-20 14:09] LABS: Amphetamine Screen,Urine Negative ng/mL (Cutoff=1000); Barbiturate Screen,Urine Negative ng/mL (Cutoff=200); Benzodiazepines Screen,Urine Negative ng/mL (Cutoff=200); Cannabinoid Screen,Urine Negative ng/mL (Cutoff = 50); Cocaine Screen,Urine Negative ng/mL (Cutoff= 300); Opiate Screen,Urine Negative ng/mL (Cutoff=300); Phencyclidine Screen,Urine Negative ng/mL (Cutoff=25)
--- NOTE | 2018-03-20 14:11 | Emergency Department Note ---
Disposition Clinical Impression: Hypoglycemia Altered mental state Qualifiers: Altered mental status type: delirium Qualified Code(s): R41.0 - Disorientation , unspecified Disposition: Admitted As Inpatient Condition: Fair Time of Disposition: 14:52 General Adult HPI - General Chief complaint: ED General Medical Stated complaint: Hypoglycemia Time Seen by Provider: 03/20/18 12:19 Source: EMS Mode of arrival: EMS Limitations: altered mental status Nursing Notes Reviewed: Yes Vital Signs Reviewed: Yes - History of Present Illness HPI Narrative: Patient is a 52-year-old male who presents to [facility] ED with a chief complaint of altered mental status and hypoglycemia. Per EMS, they had a reported glucose of 39. When they went and checked it, his glucose was 89. Patient was still obtunded at that time. When they brought him here, his glucose had dropped down to 57 and again. Patient was given an amp of D50. Patient was unresponsive but awake. Unable to answer any questions. Awaiting family arrival. Onset (ago): hour(s) Pain Scale: 0 Improves with: nothing Worsens with: nothing Associated symptoms: Reports: denies other symptoms Treatments Prior to Arrival: none - Related Data Home Medications Medication Instructions Recorded Confirmed Aspirin [Lo-Dose Aspirin EC] 81 mg PO DAILY 03/20/18 Gabapentin [Neurontin] 600 mg PO Q8H 03/20/18 03/20/18 Glimepiride [Amaryl] 4 mg PO DAILY 03/20/18 03/20/18 Insulin Glargine,Hum.rec.anlog 50 unit SQ HS 03/20/18 03/20/18 [Basaglar Kwikpen U-100] Metformin HCl [Glucophage] 1,000 mg PO BID 03/20/18 03/20/18 Montelukast [Singulair] 10 mg PO HS 03/20/18 03/20/18 Simvastatin [Zocor] 20 mg PO HS 03/20/18 03/20/18 Allergies Allergy/AdvReac Type Severity Reaction Status Date / Time Penicillins [PCN] Allergy Hives Verified 03/20/18 14:04 Limitations: ROS unobtainable due to patients medical condition Past Medical History - Past Medical History Attestation: Yes The following information was validated with the patient. Source: old records reviewed Medical history: Reports: non-contributory - Social History Smoking Status: Unknown if ever smoked Alcohol use: Reports: unknown Drug use: Reports: unknown Physical Exam - General Limitations: altered mental status General appearance: alert, in no apparent distress - Head Head exam: atraumatic, normocephalic, normal inspection - Eye Eye exam: Present: normal appearance - ENT ENT exam: normal exam, normal oropharynx, mucous membranes moist - Neck Neck exam: Present: normal inspection, full ROM, trachea midline - Chest Chest inspection: Present: normal inspection, symmetric chest wall rise - Respiratory Respiratory exam: Present: normal lung sounds bilaterally - Cardiovascular Cardiovascular exam: Present: regular rate, normal rhythm, normal heart sounds - Abdominal Exam Abdominal exam: Present: soft, Non-Tender. Absent: tenderness, distention, guarding, rebound, rigidity - Extremities Exam Extremities exam: Present: normal inspection, full ROM. Absent: tenderness, pedal edema - Skin Skin exam: Present: warm, dry, intact, normal color Course Course Narrative: Patient seen and examined. Obtunded upon his arrival. Unable to answer any questions. Glucose is 57 zone amp of D50 was given. Altered mental status workup initiated along with CT of the head, chest x-ray, urine analysis. - Reevaluation(s) Reevaluation #1: Upon family's arrival, states he has had multiple hypoglycemic episodes. States he has not been conversational at all today. Unknown when he was last well. Patient currently on insulin, metformin, Amaryl. Suspect patient will need continued monitoring for his glucose. May need his medications adjusted. Family member states he gave him a shot of something last night but they are not sure exactly what it was. They will need counseling as to how to administer his medications. Time: 14:50 Vital Signs Temperature 97 F L 03/20/18 12:19 Pulse Rate 121 03/20/18 12:19 Respiratory Rate 20 03/20/18 12:19 Blood Pressure 127/101 03/20/18 12:19 O2 Sat by Pulse Oximetry 82 03/20/18 12:19 Temperature 99.5 F 03/20/18 18:52 Pulse Rate 101 03/20/18 18:52 Respiratory Rate 14 03/20/18 18:52 Blood Pressure 165/91 03/20/18 18:52 O2 Sat by Pulse Oximetry 99 03/20/18 18:52 Oxygen Delivery Oxygen Delivery Nasal Cannula Medical Decision Making - Medical Records Medical records reviewed: Yes I reviewed the patient's medical records. - Lab Data Lab results reviewed: Yes I reviewed the patient's lab results. Result diagrams: 03/20/18 13:06 03/20/18 12:19 Lab Results 03/20/18 03/20/18 03/20/18 Range/Units 12:19 12:19 12:23 WBC (4.3-11.1) K/mcL RBC (4.19-5.50) M/mcL Hgb (12.9-16.9) g/dL Hct (37.5-50.1) % MCV (83.0-100.0) fL MCH (28.0-33.3) pg MCHC (31.6-35.5) g/dL RDW (11.5-14.5) % Plt Count (140-400) K/mcL MPV (9.4-12.4) fL Immature Gran % (0-4) % Seg Neutrophils % % Lymphocytes % % Monocytes % % Eosinophils % % Basophils % % Neutrophils # (1.6-8.9) K/mcL Lymphocytes # (0.6-4.6) K/mcL Monocytes # (0.0-1.3) K/mcL Eosinophils # (0.0-0.6) K/mcL Basophils # (0.0-0.2) K/mcL PT 10.1 (9.4-12.1) Seconds INR 0.9 VBG pH (7.32-7.42) pH Units VBG pCO2 (41-51) mmHg VBG pO2 (25-50) mmHg VBG HCO3 (21-27) mEq/L Sodium 138 (136-145) mEq/L Potassium 4.0 (3.5-5.1) mEq/L Chloride 107 (98-107) mEq/L Carbon Dioxide 26 (23-29) mEq/L BUN 9 (6-20) mg/dL Creatinine 0.75 (0.70-1.30) mg/dL Est GFR ( Amer) > 60 (> 60) Est GFR (Non-Af Amer) > 60 (> 60) BUN/Creatinine Ratio 12 (6-26) Glucose 320 H (70-105) mg/dL Est Mean Plasma Glucose mg/dl Hemoglobin A1c ( - 5.6) % Calculated Osmolality 297 (280-300) Lactic Acid (0.5-2.2) mmol/L Calcium 8.7 (8.6-10.3) mg/dL Magnesium 1.8 (1.6-2.6) mg/dL Total Bilirubin 0.3 (0.3-1.0) mg/dL AST 20 (13-39) Units/L ALT 9 (7-52) Units/L Alkaline Phosphatase 61 (34-104) Units/L Troponin I < 0.03 (< 0.04) ng/mL Serum Total Protein 6.9 (6.4-8.9) g/dL Albumin 3.5 (3.5-5.7) g/dL Globulin 3.4 (2.4-3.5) g/dL Albumin/Globulin Ratio 1.0 L (1.1-2.2) Lipase 13 (11-82) Units/L Urine Color (Yellow) Urine Clarity (Clear) Urine pH (5.0-8.0) pH Units Ur Specific [place] (1.010-1.025) Urine Protein (Neg-Trace) mg/dL Urine Glucose (UA) (Normal) mg/dL Urine Ketones (Negative) mg/dL Urine Blood (Negative) Urine Nitrite (Negative) Urine Bilirubin (Negative) Urine Urobilinogen (Normal) mg/dL Ur Leukocyte Esterase (Negative) Urine Microscopic RBC (0-3) per hpf Urine Microscopic WBC (0-3) per hpf Ur Squamous Epith Cells (None-Few) per lpf Urine Bacteria (None-Few) per hpf Hyaline Casts (None-Few) per lpf Ur Culture Indicated? (NO) Urine Opiates Screen (Vycwro=819) ng/mL Ur Barbiturates Screen (Zlavmy=307) ng/mL Ur Phencyclidine Scrn (Cutoff=25) ng/mL Ur Amphetamines Screen (Zxgcqe=3967) ng/mL U Benzodiazepines Scrn (Taywfh=908) ng/mL Urine Cocaine Screen (Cutoff= 300) ng/mL U Marijuana (THC) Screen (Cutoff = 50) ng/mL Ethyl Alcohol < 10 (Less than 10) mg/dL 03/20/18 03/20/18 03/20/18 Range/Units 13:06 13:06 13:06 WBC 15.6 H (4.3-11.1) K/mcL RBC 4.80 (4.19-5.50) M/mcL Hgb 13.5 (12.9-16.9) g/dL Hct 41.1 (37.5-50.1) % MCV 85.6 (83.0-100.0) fL MCH 28.1 (28.0-33.3) pg MCHC 32.8 (31.6-35.5) g/dL RDW 14.1 (11.5-14.5) % Plt Count 386 (140-400) K/mcL MPV 10.4 (9.4-12.4) fL Immature Gran % 0.6 (0-4) % Seg Neutrophils % 81.3 % Lymphocytes % 7.9 % Monocytes % 8.8 % Eosinophils % 1.0 % Basophils % 0.4 % Neutrophils # 12.7 H (1.6-8.9) K/mcL Lymphocytes # 1.2 (0.6-4.6) K/mcL Monocytes # 1.4 H (0.0-1.3) K/mcL Eosinophils # 0.2 (0.0-0.6) K/mcL Basophils # 0.1 (0.0-0.2) K/mcL PT (9.4-12.1) Seconds INR VBG pH (7.32-7.42) pH Units VBG pCO2 (41-51) mmHg VBG pO2 (25-50) mmHg VBG HCO3 (21-27) mEq/L Sodium (136-145) mEq/L Potassium (3.5-5.1) mEq/L Chloride (98-107) mEq/L Carbon Dioxide (23-29) mEq/L BUN (6-20) mg/dL Creatinine (0.70-1.30) mg/dL Est GFR ( Amer) (> 60) Est GFR (Non-Af Amer) (> 60) BUN/Creatinine Ratio (6-26) Glucose (70-105) mg/dL Est Mean Plasma Glucose 252 mg/dl Hemoglobin A1c 10.4 H ( - 5.6) % Calculated Osmolality (280-300) Lactic Acid 0.8 (0.5-2.2) mmol/L Calcium (8.6-10.3) mg/dL Magnesium (1.6-2.6) mg/dL Total Bilirubin (0.3-1.0) mg/dL AST (13-39) Units/L ALT (7-52) Units/L Alkaline Phosphatase (34-104) Units/L Troponin I (< 0.04) ng/mL Serum Total Protein (6.4-8.9) g/dL Albumin (3.5-5.7) g/dL Globulin (2.4-3.5) g/dL Albumin/Globulin Ratio (1.1-2.2) Lipase (11-82) Units/L Urine Color (Yellow) Urine Clarity (Clear) Urine pH (5.0-8.0) pH Units Ur Specific [place] (1.010-1.025) Urine Protein (Neg-Trace) mg/dL Urine Glucose (UA) (Normal) mg/dL Urine Ketones (Negative) mg/dL Urine Blood (Negative) Urine Nitrite (Negative) Urine Bilirubin (Negative) Urine Urobilinogen (Normal) mg/dL Ur Leukocyte Esterase (Negative) Urine Microscopic RBC (0-3) per hpf Urine Microscopic WBC (0-3) per hpf Ur Squamous Epith Cells (None-Few) per lpf Urine Bacteria (None-Few) per hpf Hyaline Casts (None-Few) per lpf Ur Culture Indicated? (NO) Urine Opiates Screen (Ctsips=674) ng/mL Ur Barbiturates Screen (Cqadty=360) ng/mL Ur Phencyclidine Scrn (Cutoff=25) ng/mL Ur Amphetamines Screen (Vwsbmu=8189) ng/mL U Benzodiazepines Scrn (Hdyurg=582) ng/mL Urine Cocaine Screen (Cutoff= 300) ng/mL U Marijuana (THC) Screen (Cutoff = 50) ng/mL Ethyl Alcohol (Less than 10) mg/dL 03/20/18 03/20/18 03/20/18 Range/Units 13:19 13:30 13:30 WBC (4.3-11.1) K/mcL RBC (4.19-5.50) M/mcL Hgb (12.9-16.9) g/dL Hct (37.5-50.1) % MCV (83.0-100.0) fL MCH (28.0-33.3) pg MCHC (31.6-35.5) g/dL RDW (11.5-14.5) % Plt Count (140-400) K/mcL MPV (9.4-12.4) fL Immature Gran % (0-4) % Seg Neutrophils % % Lymphocytes % % Monocytes % % Eosinophils % % Basophils % % Neutrophils # (1.6-8.9) K/mcL Lymphocytes # (0.6-4.6) K/mcL Monocytes # (0.0-1.3) K/mcL Eosinophils # (0.0-0.6) K/mcL Basophils # (0.0-0.2) K/mcL PT (9.4-12.1) Seconds INR VBG pH 7.39 (7.32-7.42) pH Units VBG pCO2 47 (41-51) mmHg VBG pO2 116 H (25-50) mmHg VBG HCO3 28 H (21-27) mEq/L Sodium (136-145) mEq/L Potassium (3.5-5.1) mEq/L Chloride (98-107) mEq/L Carbon Dioxide (23-29) mEq/L BUN (6-20) mg/dL Creatinine (0.70-1.30) mg/dL Est GFR ( Amer) (> 60) Est GFR (Non-Af Amer) (> 60) BUN/Creatinine Ratio (6-26) Glucose (70-105) mg/dL Est Mean Plasma Glucose mg/dl Hemoglobin A1c ( - 5.6) % Calculated Osmolality (280-300) Lactic Acid (0.5-2.2) mmol/L Calcium (8.6-10.3) mg/dL Magnesium (1.6-2.6) mg/dL Total Bilirubin (0.3-1.0) mg/dL AST (13-39) Units/L ALT (7-52) Units/L Alkaline Phosphatase (34-104) Units/L Troponin I (< 0.04) ng/mL Serum Total Protein (6.4-8.9) g/dL Albumin (3.5-5.7) g/dL Globulin (2.4-3.5) g/dL Albumin/Globulin Ratio (1.1-2.2) Lipase (11-82) Units/L Urine Color Yellow (Yellow) Urine Clarity Clear (Clear) Urine pH 6.0 (5.0-8.0) pH Units Ur Specific [place] 1.016 (1.010-1.025) Urine Protein 100 H (Neg-Trace) mg/dL Urine Glucose (UA) 250 H (Normal) mg/dL Urine Ketones Negative (Negative) mg/dL Urine Blood Negative (Negative) Urine Nitrite Negative (Negative) Urine Bilirubin Negative (Negative) Urine Urobilinogen Normal (Normal) mg/dL Ur Leukocyte Esterase Negative (Negative) Urine Microscopic RBC 0-3 (0-3) per hpf Urine Microscopic WBC 0-3 (0-3) per hpf Ur Squamous Epith Cells Few (None-Few) per lpf Urine Bacteria Moderate H (None-Few) per hpf Hyaline Casts None Seen (None-Few) per lpf Ur Culture Indicated? NO (NO) Urine Opiates Screen Negative (Rndnkt=685) ng/mL Ur Barbiturates Screen Negative (Ceiuug=666) ng/mL Ur Phencyclidine Scrn Negative (Cutoff=25) ng/mL Ur Amphetamines Screen Negative (Oqccwf=7140) ng/mL U Benzodiazepines Scrn Negative (Xfyfdb=150) ng/mL Urine Cocaine Screen Negative (Cutoff= 300) ng/mL U Marijuana (THC) Screen Negative (Cutoff = 50) ng/mL Ethyl Alcohol (Less than 10) mg/dL - Radiology Data Radiology results reviewed: Yes I reviewed the patient's radiology results. Head CT 03/20/18 12:19 IMPRESSION: No acute intracranial abnormality. Mild to moderate bilateral ethmoid and maxillary sinus mucosal thickening. D/ / Evelyn Bright Cha, MD / Evelyn Bright Cha, MD Interpreting Provider: Evelyn Bright Cha, MD Chest X-Ray 03/20/18 12:20 IMPRESSION: Stable portable study. D/ / Evelyn Bright Cha, MD / Evelyn Bright Cha, MD Interpreting Provider: Evelyn Bright Cha, MD - EKG Data EKG #1 EKG attestation: Yes I reviewed and interpreted this EKG. EKG results narrative: EKG done at 1313 shows normal sinus rhythm with a rate of [address] elevation or depression noted. Normal axis.
[2018-03-20] MEDS ORDERED: Naloxone 0.4 MG/ML INJ IVP PRN (14:49)
[2018-03-20] MEDS ORDERED: *HR* Promethazine 25 MG/ML VIAL IVP PRN (14:49)
[2018-03-20] MEDS ORDERED: Acetaminophen 325 MG TABLET PO PRN (14:49)
[2018-03-20] MEDS ORDERED: *HR* HYDROcodone/Acet 5/325 mg TABLET PO PRN (14:49)
[2018-03-20] MEDS ORDERED: Ondansetron 4 MG/2 ML VIAL IVP PRN (14:49)
[2018-03-20 15:08] LABS: Estimated Average Glucose 252 mg/dl; Hemoglobin A1C 10.4 %
[2018-03-20] MEDS ORDERED: diazePAM 10 MG/2 ML SYRINGE IVP PRN (15:30)
[2018-03-20] MEDS ORDERED: *HR* LORazepam 2 MG/ML VIAL IVP PRN (15:30)
--- NOTE | 2018-03-20 15:47 | Internal Med History&Physical ---
Date of Encounter: 03/20/18 Time of Encounter: 15:00 Internal Medicine - H&P: HPI Chief complaint: Hypoglycemia Admitted From: Emergency Dept Plans for Post Hospital Care: Home History of present illness: Mr. Rodriguez is a 52 year old male DM2, Tobacco dependent, Alcohol dependent drinks 12-20 beers a day was brought into ER by family for severe hypoglycemia. As per pt he was drinking all day y/d and took his Levemir 40 U at [facility], later he became diaphoretic and dizzy early this morning. Also pt was confused and his accuckech was 39. He was given some orange juice , here in the ER his BS still 57. He was given D50 x 1 amp. Now he is alert, awake and Ox 3. However still looks little confused, weak and lethargic. Past Med Surg Social Fam HX - Past Medical History Medical history: diabetes, hypertension - Social History Smoking Status: Current every day smoker Packs per day: 2 Smokeless Tobacco Status: No Alcohol use: heavy Drug use: unknown - Family History Mother Living Status: Hx Family Endocrine Disorder: Yes (dm) Internal Medicine - H&P: Meds Aspirin [Lo-Dose Aspirin EC] 81 mg PO DAILY 03/20/18 [History] Gabapentin [Neurontin] 600 mg PO Q8H 03/20/18 [History] Glimepiride [Amaryl] 4 mg PO DAILY 03/20/18 [History] Insulin Glargine,Hum.rec.anlog [Basaglar Kwikpen U-100] 50 unit SQ HS 03/20/18 [ History] Metformin HCl [Glucophage] 1,000 mg PO BID 03/20/18 [History] Montelukast [Singulair] 10 mg PO HS 03/20/18 [History] Simvastatin [Zocor] 20 mg PO HS 03/20/18 [History] 3 Allergy/AdvReac Type Severity Reaction Status Date / Time Penicillins [PCN] Allergy Hives Verified 03/20/18 14:04 All Systems PM: A 10-system review of systems was performed and is negative for pertinent findings except as documented above in the HPI. Review of systems: All the systems are reviewed everything is benign except the systems and symptoms I mentioned in the history of present illness - Constitutional Vitals: Temp Pulse Resp BP Pulse Ox 97 F L 98 16 162/108 100 06/03/18 12:19 03/20/18 14:00 03/20/18 14:38 03/20/18 14:38 03/20/18 14:00 General appearance: Present: A&O X 3, no acute distress, answers questions appropriately - Head Head exam: Present: atraumatic, normal inspection - Neck Neck exam general surgery: Present: supple - Respiratory Respiratory exam: Present: decreased breath sounds. Absent: rales, respiratory distress, rhonchi, wheezes - Cardiovascular Cardiovascular exam: Present: RRR, +S1, +S2. Absent: tachycardia - GI/Abdominal GI/Abdominal exam: Present: normal bowel sounds, soft. Absent: distended, rigid , tenderness - Extremities Exam Extremities exam: Absent: calf tenderness, pedal edema, tenderness - Back Exam Back exam: Absent: CVA tenderness (L), CVA tenderness (R) - Neurological Exam Neurological exam: Present: alert, oriented X3 - Psychiatric Psychiatric exam: Present: anxious - Skin Skin exam: Absent: rash Internal Med - H&P Results - Labs CBC & Chem 7: 03/20/18 13:06 03/20/18 12:19 - Assessment and plan (1) Hypoglycemia Current Visit: Yes Status: Acute Assessment and plan: Place the pt into tele for observation check Q4hr Accuchecks His hypoglycemia might due to nutritional def, alcohol intake and Insulin + Sulfonylurea usage Held all DM meds cont close monitoring no need of D5IVF now tolerating PO intake well (2) Altered mental state Current Visit: Yes Status: Acute Assessment and plan: Due to metabolic encephalopathy with severe hypoglycemia + Alcohol usage too improving cont close monitoring Qualifiers: Altered mental status type: delirium Qualified Code(s): R41.0 - Disorientation, unspecified (3) Alcohol dependence Current Visit: Yes Status: Acute Assessment and plan: High risk for withdrawal symptoms Placed him on CIWA protocol Ativan PRN Thiamine + Folic acid + MVT Also started him on HORACIO Librium SW consulted Qualifiers: Substance use status: uncomplicated Qualified Code(s): F10.20 - Alcohol dependence, uncomplicated (4) DM2 (diabetes mellitus, type 2) Current Visit: Yes Status: Acute Assessment and plan: cont monitoring for now will check HbA1C If BS improves will put him on low ISS Qualifiers: 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
[2018-03-20] MEDS: Gabapentin 300 MG CAPSULE PO SCH ×3 (16:36→20:42)
[2018-03-20] MEDS: Thiamine (B-1) 100 MG TABLET PO SCH (16:36)
[2018-03-20] MEDS: Vitamin B Complex/Vit C/Vit E 1 EACH TABLET PO SCH (16:36)
[2018-03-20] MEDS: Folic Acid 1 MG TABLET PO SCH (16:36)
[2018-03-21 02:39] LABS: Basophils # 0.1 K/mcL (0.0-0.2); Basophils % 0.6 %; Eosinophils # 0.5 K/mcL (0.0-0.6); Eosinophils % 3.4 %; Hematocrit 39.9 % (37.5-50.1); Hemoglobin 13.1 g/dL (12.9-16.9); Immature Granulocytes % 0.4 % (0-4); Lymphocytes # 3.3 K/mcL (0.6-4.6); Mean Corpuscular HGB Conc 32.8 g/dL (31.6-35.5); Mean Corpuscular Hemoglobin 27.5 pg (28.0-33.3); Mean Corpuscular Volume 83.8 fL (83.0-100.0); Mean Platelet Volume 10.3 fL (9.4-12.4); Monocytes # 1.7 K/mcL (0.0-1.3); Monocytes % 12.1 %; Neutrophils # 8.6 K/mcL (1.6-8.9); Platelet Count 401 K/mcL (140-400); Red Blood Count 4.76 M/mcL (4.19-5.50); Red Cell Distribution Width 14.2 % (11.5-14.5); Segmented Neutrophils % 60.5 %
[2018-03-21 02:55] LABS: BUN/Creatinine Ratio 12 (6-26); Blood Urea Nitrogen 9 mg/dL (6-20); Calcium 8.8 mg/dL (8.6-10.3); Carbon Dioxide 29 mEq/L (23-29); Chloride 105 mEq/L (98-107); Glucose 71 mg/dL (70-105); Osmolality,Calculated 283 (280-300); Potassium 3.8 mEq/L (3.5-5.1); Sodium 138 mEq/L (136-145); eGFR For African Americans > 60 (> 60); eGFR For Non-African Americans > 60 (> 60)
[2018-03-21] MEDS: Gabapentin 300 MG CAPSULE PO SCH ×3 (09:10→21:00)
[2018-03-21] MEDS: Folic Acid 1 MG TABLET PO SCH (09:10)
[2018-03-21] MEDS: Thiamine (B-1) 100 MG TABLET PO SCH (09:11)
[2018-03-21] MEDS: Vitamin B Complex/Vit C/Vit E 1 EACH TABLET PO SCH (09:11)
--- NOTE | 2018-03-21 13:16 | Internal Med Progress Note ---
Date of Encounter: 03/21/18 Time of Encounter: 13:14 - Assessment and plan (1) Delirium tremens Current Visit: Yes Status: Acute Assessment and plan: Seems to be in active DT's now Will place him on tele Cont CIWA IV hydration Cont Librium (2) SIRS (systemic inflammatory response syndrome) Current Visit: Yes Status: Acute Assessment and plan: Does meet SIRS criteria with elevated WBC, T max 102.2 will get CXR Will check UA Blood cx drawn Does need to stay in the hospital more than 2 nights, will make him full admission. will start him on empirical abx Unasyn - in suspect of aspiration PNA (3) Hypoglycemia Current Visit: Yes Status: Acute Assessment and plan: Little better today Cont checking Q4hr Accuchecks His hypoglycemia might due to nutritional def, alcohol intake and Insulin + Sulfonylurea usage Held all DM meds cont close monitoring no need of D5IVF now tolerating PO intake well (4) Altered mental state Current Visit: Yes Status: Acute Assessment and plan: Due to metabolic encephalopathy with severe hypoglycemia + Alcohol usage too Seems to be he is in active DT's too cont close monitoring Qualifiers: Altered mental status type: delirium Qualified Code(s): R41.0 - Disorientation, unspecified (5) Alcohol dependence Current Visit: Yes Status: Acute Assessment and plan: Thiamine + Folic acid + MVT Cont HORACIO Librium SW consulted Qualifiers: Substance use status: uncomplicated Qualified Code(s): F10.20 - Alcohol dependence, uncomplicated (6) DM2 (diabetes mellitus, type 2) Current Visit: Yes Status: Acute Assessment and plan: cont monitoring for now HbA1C 10.4 If BS improves will put him on low ISS Qualifiers: 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 mellitus 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 insulin use: with intermediate use Diabetes mellitus complication status: without complication Qualified Code(s): E11.9 - Type 2 diabetes mellitus without complications; Z79.4 - half-way (current) use of insulin (7) Tobacco dependence Current Visit: Yes Status: Acute Assessment and plan: Counseled to quit smoking placed on nicotine patch - Time Spent With Patient Total time spent is greater than 50% in coordination of care (as documented) at patient's floor/unit and/or counseling patient: - Subjective Interval history: Pt seems to be in active DT's now Pt is alert, awake and oriented x 3 Looks more confused Tremors ++ Denied any CP he had another hypoglycemic episode last night too - Constitutional Vitals: Temp Pulse Resp BP Pulse Ox 102.2 F H 127 20 122/75 98 03/21/18 12:00 03/21/18 12:00 03/21/18 12:00 03/21/18 12:00 03/21/18 12:00 General appearance: Present: mild distress, A&O X 3, answers questions appropriately - Head Head exam: Present: atraumatic, normal inspection - Neck Neck exam general surgery: Present: supple - Respiratory Respiratory exam: Present: decreased breath sounds. Absent: rales, respiratory distress, rhonchi, wheezes - Cardiovascular Cardiovascular exam: Present: RRR, +S1, +S2. Absent: tachycardia - GI/Abdominal GI/Abdominal exam: Present: normal bowel sounds, soft. Absent: rebound, rigid, tenderness - Extremities Exam Extremities exam: Absent: calf tenderness, pedal edema, tenderness - Back Exam Back exam: Absent: CVA tenderness (L), CVA tenderness (R) - Neurological Exam Neurological exam: Present: alert, altered - Psychiatric Psychiatric exam: Present: anxious Internal Medicine: Result - Labs CBC & Chem 7: 03/21/18 01:58 03/21/18 01:58 Labs: Short CBC 03/21/18 Range/Units 01:58 WBC 14.1 H (4.3-11.1) K/mcL Hgb 13.1 (12.9-16.9) g/dL Hct 39.9 (37.5-50.1) % Plt Count 401 H (140-400) K/mcL Neutrophils # 8.6 (1.6-8.9) K/mcL BMP 03/21/18 01:58 Sodium 138 Potassium 3.8 Chloride 105 Carbon Dioxide 29 BUN 9 Creatinine 0.75 Glucose 71 Calcium 8.8 - ABG Interpretation ABG results: PT/INR, D-dimer PT 10.1 Seconds (9.4-12.1) 03/20/18 12:19 Consult Discharge Plan - Plan Referrals: NONE,PCP [Primary Care Provider] -
--- NOTE | 2018-03-21 17:26 | Electrocardiograph Report ---
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
[2018-03-21] MEDS ORDERED: *HR* Dextrose 50 % in Water (Syg) 50 ML SYRINGE IVP PRN (18:36)
[2018-03-21] MEDS ORDERED: Dextrose Gel 15 GM/37.5 ML TUBE PO PRN ×2 (18:36)
[2018-03-21] MEDS ORDERED: D5% in Water 1,000 ML IVC PRN (18:36)
[2018-03-21] MEDS: Insulin LISPRO 300 UNITS/3 ML VIAL SQ SCH (23:59)
[2018-03-22 03:53] LABS: Bilirubin,Urine Negative (Negative); Blood,Urine Negative (Negative); Clarity,Urine Clear (Clear); Color,Urine Yellow (Yellow); Glucose,Urine (UA) >=1000 mg/dL (Normal); Ketones,Urine Negative (Negative); Leukocyte Esterase,Urine Negative (Negative); Nitrite,Urine Negative (Negative); PH,Urine 5.5 pH Units (5.0-8.0); Protein,Urine Negative (Neg-Trace); Specific Gravity,Urine 1.027 (1.010-1.025); Urobilinogen,Urine Normal (Normal)
[2018-03-22] MEDS: *HR* Enoxaparin 40 MG/0.4 ML SYRINGE SQ SCH (06:28)
[2018-03-22] MEDS: Insulin LISPRO 300 UNITS/3 ML VIAL SQ SCH ×3 (06:28→18:36)
[2018-03-22] MEDS: Gabapentin 300 MG CAPSULE PO SCH ×3 (09:31→23:33)
[2018-03-22] MEDS: Levofloxacin 500 MG/100 ML 500 MG/100 ML BAG IVPB SCH (09:31)
[2018-03-22] MEDS: Thiamine (B-1) 100 MG TABLET PO SCH (09:31)
[2018-03-22] MEDS: Folic Acid 1 MG TABLET PO SCH (09:31)
[2018-03-22] MEDS: Vitamin B Complex/Vit C/Vit E 1 EACH TABLET PO SCH (09:31)
[2018-03-22] MEDS: 0.9 % Sodium Chloride 1,000 ML IVC SCH (11:50)
--- NOTE | 2018-03-22 14:21 | Internal Med Progress Note ---
Date of Encounter: 03/22/18 Time of Encounter: 12:00 - Assessment and plan (1) SIRS (systemic inflammatory response syndrome) Current Visit: Yes Status: Acute Assessment and plan: Pt. continues to meet SIRS criteria w/ HR of 101, RR of 26, and WBC of 14.1. Currently afebrile and asymptomatic for infection. Blood cultures x2 drawn and waiting on results. UA negative for infection. Lactic acid 0.7. 0.9 NS IV fluids @ 75 mL/HR. Continue Levaquin IVPB for suspected aspiration PNA. Unasyn not ordered d/t pts. allergy to penicillin. Monitor pt. and f/u labs for signs of increasing infection. (2) Altered mental state Current Visit: Yes Status: Acute Assessment and plan: Hx of alcohol abuse. Pt. reports drinking a case of beer several days ago. Pt. also had hypoglycemic episodes which have resolved. DT sx improving. Continue CIWA scale, telemetry, and close monitoring. Falls precautions, up with assist, bed rest w/bathroom privileges w/assist only. Qualifiers: Altered mental status type: delirium Qualified Code(s): R41.0 - Disorientation, unspecified (3) Delirium tremens Current Visit: Yes Status: Acute Assessment and plan: Improving on exam and according to pt. Continue telemetry and CIWA scale. 0.9 NS IV fluids @ 75 mL/HR. Pt. slightly altered on exam, so will hold afternoon Librium and monitor. (4) Alcohol dependence Current Visit: Yes Status: Chronic Assessment and plan: Continue Thiamine, Folic acid, and MVT. Will hold pts. afternoon dosing of Librium d/t current AMS. Sx of DTs improving on exam and according to pt. Continue to monitor. Qualifiers: Substance use status: uncomplicated Qualified Code(s): F10.20 - Alcohol dependence, uncomplicated (5) DM2 (diabetes mellitus, type 2) Current Visit: Yes Status: Chronic Assessment and plan: Pt. had several incidents of hypoglycemia w/BG of 71 yesterday. BG 231 at 06: 00 and 180 at noon today. BG checks every 6 hour. Low-dose correction insulin sliding scale every 6 hour with hypoglycemic protocol. A1c 10.4 on 03/21. 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 (7) Hypoglycemia Current Visit: Yes Status: Resolved Assessment and plan: Pt. had several incidents of hypoglycemia w/BG of 71 yesterday likely d/t alcohol abuse. Low-dose correction insulin sliding scale every 6 hour with hypoglycemic protocol. Continue to monitor. (8) DVT prophylaxis Current Visit: Yes Status: Acute Assessment and plan: Continue Lovenox 40 mg SQ 06:00 for DVT prophylaxis. Monitor patient for signs of bleeding. - Time Spent With Patient Total time spent is greater than 50% in coordination of care (as documented) at patient's floor/unit and/or counseling patient: 25 - 35 minutes - Subjective Interval history: Pt. alert w/mild AMS. Reports DT sx improved. States appetite improving. Denies hx of seizures or withdrawal seizures from current alcohol abuse. States his last drink was several days ago and reports he drank a case of beer. States this is normal for him. Denies N/V, fever, chills, CP, SOB. - Constitutional Vitals: Temp Pulse Resp BP Pulse Ox 98.2 F 101 26 120/74 99 03/22/18 11:49 03/22/18 11:49 03/22/18 07:19 03/22/18 11:49 03/22/18 11:49 General appearance: Present: mild distress, A&O X 3, underweight, answers questions appropriately - Head Head exam: Present: atraumatic, normocephalic - Eye Eye exam: Present: PERRL, conjuntiva pink, sclera anicteric Pupils: Present: PERRL - ENT ENT exam: Present: normal exam - Neck Neck exam general surgery: Present: supple, trachea midline. Absent: lymphadenopathy - Respiratory Respiratory exam: Present: tachypnea. Absent: accessory muscle use, rales, rhonchi, wheezes - Cardiovascular Cardiovascular exam: Present: +S1, +S2, tachycardia. Absent: diastolic murmur, gallop, rubs, systolic murmur - GI/Abdominal GI/Abdominal exam: Present: normal bowel sounds, soft, no peritoneal signs. Absent: distended, tenderness - Rectal Rectal exam: Present: deferred - Additional comments: exam deferred. - Extremities Exam Extremities exam: Present: warm, radial pulses palpable and symmetrical. Absent : calf tenderness, cyanotic, pedal edema - Back Exam Back exam: Present: normal inspection - Neurological Exam Neurological exam: Present: altered (Most likely d/t Librium for withdrawal), oriented X3 - Psychiatric Psychiatric exam: Present: flat affect - Skin Skin exam: Present: dry, intact Internal Medicine: Result - Labs CBC & Chem 7: 03/21/18 01:58 03/21/18 01:58 Labs: Urine 03/22/18 Range/Units 03:25 Urine Color Yellow (Yellow) Urine Clarity Clear (Clear) Urine pH 5.5 (5.0-8.0) pH Units Ur Specific [place] 1.027 H (1.010-1.025) Urine Protein Negative (Neg-Trace) mg/dL Urine Glucose (UA) >=1000 H (Normal) mg/dL - ABG Interpretation ABG results: PT/INR, D-dimer PT 10.1 Seconds (9.4-12.1) 03/20/18 12:19 - Diagnostic Studies Chest x-ray Additional comments: Impressions Chest X-Ray 03/20/18 12:20 IMPRESSION: Stable portable study. D/ / Evelyn Bright Cha, MD / Evelyn Bright Cha, MD Interpreting Provider: Evelyn Bright Cha, MD Chest X-Ray 03/21/18 13:11 IMPRESSION: Left basilar opacity, atelectasis versus pneumonia. D/ / Yobani Cerrato MD / Yobani Cerrato MD Interpreting Provider: Yobani Cerrato MD CT scan - head Additional comments: Impressions Head CT 03/20/18 12:19 IMPRESSION: No acute intracranial abnormality. Mild to moderate bilateral ethmoid and maxillary sinus mucosal thickening. D/ / Evelyn Bright Cha, MD / Evelyn Bright Cha, MD Interpreting Provider: Evelyn Bright Cha, MD Consult Discharge Plan - Plan Referrals: NONE,PCP [Primary Care Provider] -
[2018-03-22] MEDS ORDERED: *HR* LORazepam 2 MG/ML VIAL IVP PRN ×2 (23:52)
[2018-03-23] MEDS: Insulin LISPRO 300 UNITS/3 ML VIAL SQ SCH ×4 (00:39→18:18)
[2018-03-23] MEDS: 0.9 % Sodium Chloride 1,000 ML IVC SCH (02:06)
[2018-03-23] MEDS: Insulin DETEMIR 100 UNIT/ML X5UNITS SQ SCH ×2 (02:06→23:16)
[2018-03-23 03:28] LABS: ABG Base Excess -1 mEq/L (-2 to 3); ABG HCO3 24 mEq/L (21-27); ABG Oxygen Saturation 95 % (95-98); ABG PCO2 38 mmHg (35-45); ABG PO2 78 mmHg (85-104); ABG TCO2 25 mEq/L (20-26)
[2018-03-23] MEDS: *HR* Enoxaparin 40 MG/0.4 ML SYRINGE SQ SCH (06:31)
[2018-03-23] MEDS: Gabapentin 300 MG CAPSULE PO SCH ×3 (09:43→23:17)
[2018-03-23] MEDS: Folic Acid 1 MG TABLET PO SCH (09:46)
[2018-03-23] MEDS: Vitamin B Complex/Vit C/Vit E 1 EACH TABLET PO SCH (09:46)
[2018-03-23] MEDS: Thiamine (B-1) 100 MG TABLET PO SCH (09:46)
[2018-03-23] MEDS: Levofloxacin 500 MG/100 ML 500 MG/100 ML BAG IVPB SCH (09:46)
[2018-03-23 15:33] LABS: Adenovirus Not Detected (Not Detect); Bordetella Pertussis Not Detected (Not Detect); Chlamydophila pneumoniae Not Detected (Not Detect); Coronavirus 229E Not Detected (Not Detect); Coronavirus HKU1 Not Detected (Not Detect); Coronavirus NL63 Not Detected (Not Detect); Coronavirus OC43 Not Detected (Not Detect); Human Metapneumovirus Not Detected (Not Detect); Human Rhinovirus/Enterovirus Not Detected (Not Detect); Influenza A Subtype 2009 H1 Not Detected (Not Detect); Influenza A Untypeable Not Detected (Not Detect); Influenza B Not Detected (Not Detect); Mycoplasma pneumoniae Not Detected (Not Detect); Parainfluenza Virus 1 Not Detected (Not Detect); Parainfluenza Virus 2 Not Detected (Not Detect); Parainfluenza Virus 3 Not Detected (Not Detect); Parainfluenza Virus 4 Not Detected (Not Detect); Respiratory Syncytial Virus Not Detected (Not Detect)
--- NOTE | 2018-03-23 15:54 | Internal Med Progress Note ---
Date of Encounter: 03/23/18 Time of Encounter: 16:00 - Assessment and plan (1) Altered mental state Current Visit: Yes Status: Acute Assessment and plan: was found unresponsive on day of admission. Head CT nonacute. Neurologically intact. Suspect multifactorial with hypoglycemia and alcohol withdrawal. Mentation slowly improving; baseline unknown. Supportive care. Qualifiers: Altered mental status type: delirium Qualified Code(s): R41.0 - Disorientation, unspecified (2) Hypoglycemia Current Visit: Yes Status: Resolved Assessment and plan: Has known history of diabetes. Hgb A1c 10.4%. Family reported patient will take diabetes medication however he does not eat and drinks excessively. Initially hypoglycemic on arrival. Blood sugars have now improved and he is actually hyperglycemic. Continue Accu-Cheks before meals/at bedtime. Add low- dose SSI. Monitor blood sugars and titrate PRN (3) Alcohol dependence Current Visit: Yes Status: Chronic Assessment and plan: Daily drinker. Family reports patient drinks 30-40 cans of beer a day. Last drink on day of admission low BAL was negative. Suspect he is in alcohol withdrawal with confusion/alteration in mental status. initially was on scheduled Librium however patient was lethargic/obtunded. Symptoms appear controlled on 03/23 exam. Continue to monitor with CIWA. Continue thiamine, folic acid. Qualifiers: Substance use status: uncomplicated Qualified Code(s): F10.20 - Alcohol dependence, uncomplicated (4) DM2 (diabetes mellitus, type 2) Current Visit: Yes Status: Chronic Assessment and plan: Per history. Hgb A1c 10.4%. Continue low-dose SSI. 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 (6) Pneumonia Current Visit: Yes Status: Acute Assessment and plan: CXR with LLL opacity inserting for atelectasis or pneumonia. Clinically does not overtly appear to be pneumonia however he did have rhonchorous lung sounds on arrival. Continue IV Levaquin, urinary antigens/respiratory PCR pending. Aggressive IS. Repeat CXR Qualifiers: Laterality: left Lung location: lower lobe of lung Qualified Code(s): J18.1 - Lobar pneumonia, unspecified organism (7) SIRS (systemic inflammatory response syndrome) Current Visit: Yes Status: Acute Assessment and plan: SIRS criteria w/ HR of 101, RR of 26, and WBC of 14.1. Currently afebrile and asymptomatic for infection. Blood cultures x2 drawn and waiting on results. UA negative for infection. Lactic acid 0.7. 0.9 NS IV fluids @ 75 mL/HR. Continue Levaquin IVPB for suspected PNA. (8) DVT prophylaxis Current Visit: Yes Status: Acute Assessment and plan: Lovenox - Time Spent With Patient Total time spent is greater than 50% in coordination of care (as documented) at patient's floor/unit and/or counseling patient: - Subjective Interval history: Seen and examined at bedside. Patient is new to me, information obtained from chart review and patient report. He is drowsy but awake and conversing. Appears to be somewhat confused. He can tell me his name, he knows he is in the hospital but appears to have poor insight/decision-making. Says he would like to go home today. I was able to convince him to stay for further IV ATB, alcohol detox and PT/OT evaluation. - Constitutional Vitals: Temp Pulse Resp BP Pulse Ox 97.6 F 85 20 159/90 99 03/23/18 15:46 03/23/18 15:46 03/23/18 15:46 03/23/18 15:46 03/23/18 15:46 General appearance: Present: A&O X 2 (Drowsy with fluctuating orientation. Neurologically intact.), A&O X 3, underweight, answers questions appropriately - Head Head exam: Present: atraumatic, normocephalic - Eye Eye exam: Present: PERRL, conjuntiva pink, sclera anicteric Pupils: Present: PERRL - Neck Neck exam general surgery: Present: supple, trachea midline. Absent: lymphadenopathy - Respiratory Respiratory exam: Present: CTAB. Absent: accessory muscle use, rales, rhonchi, wheezes - Cardiovascular Cardiovascular exam: Present: RRR, +S1, +S2. Absent: diastolic murmur, gallop, rubs, systolic murmur - GI/Abdominal GI/Abdominal exam: Present: normal bowel sounds, soft, no peritoneal signs. Absent: distended, tenderness - Extremities Exam Extremities exam: Present: warm, radial pulses palpable and symmetrical. Absent : calf tenderness, cyanotic, pedal edema - Neurological Exam Neurological exam: Present: CN II-XII intact, oriented X3, no focal deficits. Absent: pronater drift, facial droop, speech deficit - Skin Skin exam: Present: dry, intact Internal Medicine: Result - Labs CBC & Chem 7: 03/21/18 01:58 03/21/18 01:58 - ABG Interpretation ABG results: ABG ABG pH 7.40 pH Units (7.32-7.45) 03/23/18 03:20 ABG pCO2 38 mmHg (35-45) 03/23/18 03:20 ABG pO2 78 mmHg (85-104) L 03/23/18 03:20 ABG O2 Saturation 95 % (95-98) 03/23/18 03:20 PT/INR, D-dimer PT 10.1 Seconds (9.4-12.1) 03/20/18 12:19 Consult Discharge Plan - Plan Referrals: NONE,PCP [Primary Care Provider] -
[2018-03-23] MEDS ORDERED: Insulin LISPRO 300 UNITS/3 ML VIAL SQ SCH (21:00)
[2018-03-24] MEDS: *HR* Enoxaparin 40 MG/0.4 ML SYRINGE SQ SCH (05:36)
[2018-03-24 06:10] LABS: Hematocrit 39.3 % (37.5-50.1); Hemoglobin 12.6 g/dL (12.9-16.9); Mean Corpuscular HGB Conc 32.1 g/dL (31.6-35.5); Mean Corpuscular Hemoglobin 27.4 pg (28.0-33.3); Mean Corpuscular Volume 85.4 fL (83.0-100.0); Mean Platelet Volume 10.7 fL (9.4-12.4); Platelet Count 364 K/mcL (140-400)
[2018-03-24 06:19] LABS: BUN/Creatinine Ratio 19 (6-26); Blood Urea Nitrogen 12 mg/dL (6-20); Carbon Dioxide 28 mEq/L (23-29); Chloride 109 mEq/L (98-107); Glucose 157 mg/dL (70-105); Osmolality,Calculated 299 (280-300); Potassium 3.9 mEq/L (3.5-5.1); Sodium 143 mEq/L (136-145); eGFR For African Americans > 60 (> 60); eGFR For Non-African Americans > 60 (> 60)
[2018-03-24] MEDS: Insulin LISPRO 300 UNITS/3 ML VIAL SQ SCH ×2 (07:56→11:50)
[2018-03-24] MEDS: Thiamine (B-1) 100 MG TABLET PO SCH (08:02)
[2018-03-24] MEDS: Gabapentin 300 MG CAPSULE PO SCH (08:02)
[2018-03-24] MEDS: Folic Acid 1 MG TABLET PO SCH (08:02)
[2018-03-24] MEDS: Vitamin B Complex/Vit C/Vit E 1 EACH TABLET PO SCH (08:02)
[2018-03-24] MEDS: 0.9 % Sodium Chloride 1,000 ML IVC SCH (08:12)
[2018-03-24] MEDS ORDERED: Levofloxacin 750 MG/150 ML 750 MG/150 ML BAG IVPB SCH (09:00)
[2018-03-24 11:21] VITALS: BP 145/95
--- NOTE | 2018-03-24 14:12 | Discharge Summary ---
- NOTES TO OUTPATIENT PROVIDER Notes to Outpatient Provider: Patient was admitted with hypoglycemia with altered mental status, now resolved. Incidental finding of Pneumonia, discharged on levaquin for 3 more days. Clinically stable. Discontinued Glimepiride, A1C was 10. Patient is also a known alcoholic, wishes to self quit , no alcohol withdrawal on admission Orders not resulted at time of discharge: Pending orders 03/25/18 04:00 BMP [Basic Metabolic Panel] AM 0400 Complete Blood Count w/o Diff [HEME] AM 0400 03/26/18 04:00 BMP [Basic Metabolic Panel] AM 0400 Complete Blood Count w/o Diff [HEME] AM 0400 03/27/18 04:00 BMP [Basic Metabolic Panel] AM 0400 Complete Blood Count w/o Diff [HEME] AM 0400 03/28/18 04:00 BMP [Basic Metabolic Panel] AM 0400 Complete Blood Count w/o Diff [HEME] AM 0400 Date of Encounter: 03/24/18 Time of Encounter: 14:10 - Discharge Diagnosis (1) DVT prophylaxis Priority: Primary Status: Acute (2) Altered mental state Priority: Primary Status: Resolved Qualifiers: Altered mental status type: delirium Qualified Code(s): R41.0 - Disorientation, unspecified (3) Hypoglycemia Priority: Primary Status: Resolved (4) Alcohol dependence Priority: Secondary Status: Chronic Qualifiers: Substance use status: uncomplicated Qualified Code(s): F10.20 - Alcohol dependence, uncomplicated (5) DM2 (diabetes mellitus, type 2) Priority: Secondary Status: Chronic Qualifiers: Diabetes mellitus shelter insulin use: with terminal clerk use Diabetes mellitus complication status: without complication Qualified Code(s): E11.9 - Type 2 diabetes mellitus without complications; 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 (6) Tobacco dependence Priority: Secondary Status: Chronic (7) SIRS (systemic inflammatory response syndrome) Priority: Primary Status: Resolved (8) Pneumonia Priority: Primary Status: Acute Qualifiers: Pneumonia type: due to group B Streptococcus Laterality: left Lung location: lower lobe of lung Qualified Code(s): J15.3 - Pneumonia due to streptococcus, group B (9) Malnutrition Priority: Secondary Status: Chronic Qualifiers: Malnutrition type: protein-calorie malnutrition Protein-calorie malnutrition severity: moderate Qualified Code(s): E44.0 - Moderate protein- calorie malnutrition Hospital course: Mr. Rodriguez is a 52 year old male with tobacco and alcohol dependence, DM on insulin, malnutrition, HTN He presented with altered mental status due to hypoglycemia, and was found with FS of 39 after taking insulin without eating, he promptly responded to D50 Incidentally found to have Streptococcal PNA, started on levaquin, not septic Seen and evaluated at the bedside this a.m, no new complains States he lives by himself with nephews and nieces, his sister at the bedside attests to this, he is ambulatory, not in any form of distress, no significant physical exam findings Labs today shows mild leukocytosis , improved from prior He will be discharged home on levaquin Glimepiride has been discontinued from his home med list, follow up with PCP for A1C of 10 , continue home insulin Tobacco and alcohol cessation counselling done Follow up with PCP, states he has an appointment 04/05/18 Discharge discussed with: patient, nurse Time spent discussing smoking cessation with patient: 3 to 10 minutes - Time Spent with Patient Total time spent providing and/or coordinating discharge services: Greater than 30 minutes - Discharge Medications Home Medications: Albuterol Sulfate [Albuterol Inhaler] 1 - 2 puff IH Q6H 08/29/16 [History] Aspirin [Lo-Dose Aspirin EC] 81 mg PO DAILY 08/29/16 [History] Beclomethasone Diprop 40mcg [QVAR 40 mcg] 1 - 2 puff IH BID 08/29/16 [History] Insulin ASPART [Novolog Flexpen] 2 - 10 unit SQ TIDWM 08/29/16 [History] Lisinopril [Zestril] 10 mg PO DAILY 08/29/16 [History] Simvastatin [Zocor] 20 mg PO DAILY 08/29/16 [History] Loratadine [Claritin] 10 mg PO DAILY 14 Days tablet 09/20/16 [Rx] Oseltamivir Phosphate 75 mg PO BID #7 capsule 10/18/17 [Rx] Gabapentin [Neurontin] 600 mg PO Q8H 03/20/18 [History] Insulin Glargine,Hum.rec.anlog [Basaglar Kwikpen U-100] 50 unit SQ HS 03/20/18 [ History] Metformin HCl [Glucophage] 1,000 mg PO BID 03/20/18 [History] Montelukast [Singulair] 10 mg PO HS 03/20/18 [History] Folic Acid 1 mg PO DAILY tablet 03/24/18 [Rx] Simvastatin [Zocor] 20 mg PO HS tablet 03/24/18 [Rx] Vitamin B Complex/Vit C/Vit E [Stresstab] 1 each PO DAILY tablet 03/24/18 [Rx] levoFLOXacin [Levaquin] 750 mg PO DAILY #4 tablet 03/24/18 [Rx] Allergies/Adverse Reactions: 3 Allergy/AdvReac Type Severity Reaction Status Date / Time Penicillins [PCN] Allergy Hives Verified 02/26/18 17:42 Date of admission: 03/21/18 18:56 Primary care physician: PCP NONE Consults: 03/23/18 12:22 Consult to Physical Therapy [CONS] Routine Comment: Evaluate, develop and implement POC Reason for Consult: weakness Does patient have active BEDREST order?: No Is patient medically & hemodynamically stable?: Yes OT [Consult to Occupational Therapy] [CONS] Routine Comment: Evaluate, develop and implement POC Reason for Consult: weakness Does patient have active BEDREST order?: No Is patient medically & hemodynamically stable?: Yes Discharging clinician: Srinivasan Bernstein Anticipated date of discharge: 03/24/18 - Constitutional Vitals: Temp Pulse Resp BP Pulse Ox 98 F 80 16 145/95 99 03/24/18 11:10 03/24/18 11:10 03/24/18 11:10 03/24/18 11:10 03/24/18 11:10 General appearance: Present: cachectic, A&O X 3, pleasant, no acute distress, underweight, answers questions appropriately - Head Head exam: Present: atraumatic, normocephalic - Eye Eye exam: Present: PERRL, conjuntiva pink, sclera anicteric Pupils: Present: PERRL - Neck Neck exam general surgery: Present: supple, trachea midline. Absent: lymphadenopathy - Respiratory Respiratory exam: Present: CTAB. Absent: accessory muscle use, rales, rhonchi, wheezes - Cardiovascular Cardiovascular exam: Present: RRR, +S1, +S2. Absent: diastolic murmur, gallop, rubs, systolic murmur - GI/Abdominal GI/Abdominal exam: Present: normal bowel sounds, soft, no peritoneal signs. Absent: distended, tenderness - Extremities Exam Extremities exam: Present: warm, radial pulses palpable and symmetrical. Absent : calf tenderness, cyanotic, pedal edema - Neurological Exam Neurological exam: Present: alert, CN II-XII intact, oriented X3, no focal deficits. Absent: pronater drift, facial droop, speech deficit - Skin Skin exam: Present: dry, intact - Patient Status Disposition: Home, Self-Care Condition: Good Functional capacity at discharge: independent ambulation Overall status at discharge: patient is back to baseline - Discharge Instructions Follow Up With: NONE,PCP [Primary Care Provider] - - Diet and Activity Activity: resume usual activities as tolerated Diet: diabetic diet, low fat, low cholesterol, low salt diet
== END 2018-03-24 15:06 | disposition home or self-care (01) | DRG 420 ==
LOC: EDBD → EMEROO 12:17 → 3NENU 12:17 → MERGE 14:17 → 3NENU 14:51 → SUATTDRO 03-21 18:56
PROVIDERS: ADMIT Family Medicine; ATTEND Hospitalist

== ENCOUNTER 2021-10-21 21:09 | Observation (INO) ==
[2021-10-21 21:47] LABS: Basophils % 0.3 %; Immature Granulocytes % 0.6 % (0-4); Mean Platelet Volume 12.3 fL (9.4-12.4)
[2021-10-21 21:48] LABS: Basophils # 0.1 K/mcL (0.0-0.2); Eosinophils # 0.1 K/mcL (0.0-0.6); Eosinophils % 0.6 %; Hemoglobin 10.3 g/dL (12.9-16.9); Lymphocytes # 1.4 K/mcL (0.6-4.6); Lymphocytes % 7.7 %; Mean Corpuscular HGB Conc 27.1 g/dL (31.6-35.5); Mean Corpuscular Hemoglobin 26.4 pg (28.0-33.3); Mean Corpuscular Volume 97.4 fL (83.0-100.0); Monocytes # 1.8 K/mcL (0.0-1.3); Monocytes % 10.1 %; Neutrophils # 14.6 K/mcL (1.6-8.9); Platelet Count 342 K/mcL (140-400); Red Cell Distribution Width 14.7 % (11.5-14.5); Segmented Neutrophils % 80.7 %; White Blood Count 18.1 K/mcL (4.3-11.1)
[2021-10-21 21:51] LABS: Hypochromasia Present (Not Present)
[2021-10-21 21:53] LABS: Bilirubin,Urine Negative (Negative); Blood,Urine Trace (Negative); Clarity,Urine Clear (Clear); Color,Urine Colorless (Yellow); Glucose,Urine (UA) >=1000 mg/dL (Normal); Ketones,Urine Negative (Negative); Leukocyte Esterase,Urine Small (Negative); Mucus,Urine Few per lpf (None-Few); Nitrite,Urine Positive (Negative); Protein,Urine Trace mg/dL (Neg-Trace); RBC,Urine 0-3 per hpf (0-3); Specific Gravity,Urine 1.026 (1.010-1.025); Squamous Epithelial Cell,Urine Few per hpf (None-Few); Urobilinogen,Urine Normal (Normal); WBC,Urine 50-100 per hpf (0-3)
[2021-10-21 22:20] LABS: Calcium 8.5 mg/dL (8.6-10.3); Potassium 4.5 mEq/L (3.5-5.1)
[2021-10-21] MEDS: 0.9 % Sodium Chloride 1,000 ML IVC SCH (22:57)
[2021-10-21] MEDS ORDERED: cefTRIAXone 1,000 MG in 0.9 % Sodium Chloride Mini Bag 100 ML IVPB ONE (23:08)
[2021-10-21 23:16] LABS: VBG HCO3 27 mEq/L (21-27); VBG PCO2 59 mmHg (41-51); VBG PH 7.26 pH Units (7.32-7.42); VBG PO2 49 mmHg (25-50)
[2021-10-21 23:34] LABS: Alanine Aminotransferase 10 Units/L (7-52); Albumin 3.5 g/dL (3.5-5.7); Albumin/Globulin Ratio 0.8 (1.1-2.2); Alkaline Phosphatase 89 Units/L (34-104); Aspartate Amino Transferase 13 Units/L (13-39); Bilirubin,Indirect 0.3 mg/dL (0.0-1.0); Bilirubin,Total 0.3 mg/dL (0.3-1.0); Globulin 4.6 g/dL (2.4-3.5); Lipase 5 Units/L (11-82); Magnesium 2.5 mg/dL (1.6-2.6); Phosphorous 4.5 mg/dL (2.7-4.5); Total Protein 8.1 g/dL (6.4-8.9)
[2021-10-21 23:42] LABS: Troponin I < 0.03 ng/mL (< 0.04)
[2021-10-22] MEDS: 0.9 % Sodium Chloride 1,000 ML IVC SCH ×5 (00:07→16:35)
[2021-10-22 00:20] LABS: Influenza A PCR Negative (Negative); Influenza B PCR Negative (Negative); Resp. Syncytial Virus PCR Negative (Negative)
[2021-10-22 00:36] LABS: SARS-CoV-2 by PCR (In House) Negative (Negative)
[2021-10-22] MEDS ORDERED: Insulin Regular, Human 100 UNIT/ML IV ONE (00:57)
[2021-10-22] MEDS ORDERED: *HR* Dextrose 50 % in Water (Syg) 50 ML SYRINGE IVP PRN ×2 (00:57→03:14)
[2021-10-22] MEDS ORDERED: Melatonin 3 MG TABLET PO PRN (03:12)
[2021-10-22] MEDS ORDERED: Ondansetron 4 MG/2 ML VIAL IVP PRN (03:12)
[2021-10-22] MEDS ORDERED: Acetaminophen 325 MG TABLET PO PRN (03:12)
[2021-10-22] MEDS ORDERED: Naloxone 0.4 MG/ML INJ IVP PRN (03:12)
[2021-10-22] MEDS ORDERED: Insulin Regular, Human 100 UNIT/ML IV PRN (03:14)
[2021-10-22] MEDS ORDERED: D5% in 0.45% NACL 1,000 ML IVC PRN (03:14)
[2021-10-22] MEDS ORDERED: D5% in 0.45% NACL w KCl 20 MEQ/1,000 ML MLS IVC PRN (03:14)
[2021-10-22] MEDS ORDERED: 0.9 % Sodium Chloride w KCl 20 MEQ/1,000 ML MLS IVC SCH (03:15)
[2021-10-22] MEDS ORDERED: 0.45 % Sodium Chloride w/KCl 20 MEQ/1,000 ML MLS IVC SCH ×2 (03:15)
[2021-10-22 04:08] LABS: Calcium 7.6 mg/dL (8.6-10.3); Magnesium 2.2 mg/dL (1.6-2.6); Phosphorous 3.4 mg/dL (2.7-4.5)
[2021-10-22] MEDS: 0.9 % Sodium Chloride w KCl 20 MEQ/1,000 ML MLS IVC SCH ×4 (04:28→16:36)
[2021-10-22 05:03] LABS: Basophils # 0.1 K/mcL (0.0-0.2); Basophils % 0.3 %; Eosinophils # 0.2 K/mcL (0.0-0.6); Eosinophils % 1.2 %; Hematocrit 31.4 % (37.5-50.1); Hemoglobin 10.2 g/dL (12.9-16.9); Immature Granulocytes % 0.6 % (0-4); Lymphocytes # 1.8 K/mcL (0.6-4.6); Lymphocytes % 9.8 %; Mean Corpuscular HGB Conc 32.5 g/dL (31.6-35.5); Mean Corpuscular Hemoglobin 27.6 pg (28.0-33.3); Mean Corpuscular Volume 84.9 fL (83.0-100.0); Mean Platelet Volume 11.8 fL (9.4-12.4); Monocytes # 1.5 K/mcL (0.0-1.3); Monocytes % 8.2 %; Neutrophils # 14.3 K/mcL (1.6-8.9); Platelet Count 332 K/mcL (140-400); Segmented Neutrophils % 79.9 %; White Blood Count 17.9 K/mcL (4.3-11.1)
[2021-10-22] MEDS ORDERED: Nicotine 21 MG PATCH.TD24 TD PRN (05:50)
[2021-10-22 08:50] LABS: VBG HCO3 24 mEq/L (21-27); VBG PCO2 46 mmHg (41-51); VBG PH 7.32 pH Units (7.32-7.42); VBG PO2 141 mmHg (25-50)
[2021-10-22] MEDS ORDERED: cefTRIAXone 1,000 MG in Water for inj. (sterile) 10 ML IVP SCH (09:00)
[2021-10-22] MEDS ORDERED: Thiamine (B-1) 100 MG, Folic Acid 1 MG, MVI, adult with vitamin K 10 ML in 0.9 % Sodi... IVPB SCH (09:00)
[2021-10-22] MEDS ORDERED: Thiamine (B-1) 100 MG in 0.9 % Sodium Chloride 50 ML IVPB SCH (09:00)
[2021-10-22] MEDS ORDERED: Folic Acid 1 MG in 0.9 % Sodium Chloride 50 ML IVPB SCH (09:00)
[2021-10-22 09:26] LABS: BUN/Creatinine Ratio 18 (6-26); Blood Urea Nitrogen 25 mg/dL (6-20); Calcium 7.9 mg/dL (8.6-10.3); Carbon Dioxide 21 mEq/L (23-29); Chloride 112 mEq/L (98-107); Glucose 158 mg/dL (70-105); Osmolality,Calculated 298 (280-300); Potassium 4.7 mEq/L (3.5-5.1); Sodium 140 mEq/L (136-145); eGFR For African Americans > 60 (> 60); eGFR For Non-African Americans 52 (> 60)
[2021-10-22] MEDS ORDERED: Insulin DETEMIR 100 UNIT/ML X5UNITS SUBQ ONE (09:40)
[2021-10-22] MEDS ORDERED: Dextrose Gel 15 GM/37.5 ML TUBE PO PRN ×2 (09:41)
[2021-10-22] MEDS ORDERED: D5% in Water 1,000 ML IVC PRN (09:41)
[2021-10-22] MEDS ORDERED: Insulin LISPRO 300 UNITS/3 ML VIAL SUBQ SCH ×2 (11:30→21:00)
[2021-10-22] MEDS: Insulin LISPRO 300 UNITS/3 ML VIAL SUBQ SCH ×2 (12:16→17:49)
[2021-10-22] MEDS: Thiamine (B-1) 100 MG in 0.9 % Sodium Chloride 50 ML IVPB SCH (14:19)
[2021-10-22] MEDS: Folic Acid 1 MG in 0.9 % Sodium Chloride 50 ML IVPB SCH (14:19)
[2021-10-22] MEDS: *HR* Heparin 5,000 UNIT/ML VIAL SQ SCH (17:49)
[2021-10-22] MEDS ORDERED: Insulin DETEMIR 100 UNIT/ML X5UNITS SUBQ SCH (21:00)
[2021-10-23 02:46] LABS: Hematocrit 31.7 % (37.5-50.1); Mean Corpuscular HGB Conc 31.5 g/dL (31.6-35.5); Mean Corpuscular Volume 85.7 fL (83.0-100.0); Mean Platelet Volume 12.2 fL (9.4-12.4); Platelet Count 372 K/mcL (140-400); Red Cell Distribution Width 14.2 % (11.5-14.5); White Blood Count 18.6 K/mcL (4.3-11.1)
[2021-10-23 03:57] LABS: BUN/Creatinine Ratio 14 (6-26); Blood Urea Nitrogen 15 mg/dL (6-20); Calcium 8.2 mg/dL (8.6-10.3); Carbon Dioxide 23 mEq/L (23-29); Chloride 112 mEq/L (98-107); Glucose 27 mg/dL (70-105); Osmolality,Calculated 289 (280-300); Potassium 3.5 mEq/L (3.5-5.1); Sodium 141 mEq/L (136-145); eGFR For African Americans > 60 (> 60); eGFR For Non-African Americans > 60 (> 60)
[2021-10-23] MEDS: *HR* Heparin 5,000 UNIT/ML VIAL SQ SCH ×2 (05:37→19:08)
[2021-10-23] MEDS: Insulin LISPRO 300 UNITS/3 ML VIAL SUBQ SCH ×3 (08:58→18:14)
[2021-10-23] MEDS: Thiamine (B-1) 100 MG in 0.9 % Sodium Chloride 50 ML IVPB SCH (12:04)
[2021-10-23] MEDS: Folic Acid 1 MG in 0.9 % Sodium Chloride 50 ML IVPB SCH (12:04)
[2021-10-23 18:35] VITALS: BP 178/88; PULSE 80; TEMP 98; O2SAT 100
== END 2021-10-23 20:09 | disposition home or self-care (01) ==
LOC: CDU 21:09 → EMEROOARM 21:09 → SUATTDRO 10-22 05:48 → 2ANU 10-22 16:03
PROVIDERS: ADMIT Internal Medicine; ATTEND Internal Medicine